=== PATIENT | female | born 1990 | race Caucasian/White ===

== ENCOUNTER 2021-12-03 23:16 | Inpatient (IN) ==
[2021-12-03] MEDS ORDERED: LORazepam 2 MG/1 ML VIAL ONE (23:27)
[2021-12-03] MEDS ORDERED: LORazepam 2 MG/1 ML VIAL IM STA (23:28)
[2021-12-03] MEDS ORDERED: MIDAZOLAM HCL 1 MG/ML 2ML VIAL ONE (23:52)
[2021-12-03] MEDS ORDERED: MIDAZOLAM HCL 1 MG/ML 2ML VIAL IV STA (23:52)
[2021-12-04] MEDS ORDERED: MIDAZOLAM HCL 1 MG/ML 2ML VIAL IV STA ×2 (00:09→07:45)
[2021-12-04] MEDS ORDERED: KETAMINE HCL INJ 50 MG/ML 10 ML VIAL ONE (00:13)
[2021-12-04] MEDS ORDERED: KETAMINE HCL INJ 50 MG/ML 10 ML VIAL IV STA ×4 (00:15→02:21)
[2021-12-04 01:03] LABS: Hematocrit (blood only) 35.5 % (37-47); Hemoglobin 12.2 g/dL (12.0-16.0); Mean Corpuscular Hemoglobin 30.7 pg (25-34); Mean Corpuscular Hgb Conc 34.4 g/dL (32-36); Mean Corpuscular Volume 89.2 fL (80-100); Mean Platelet Volume 10.1 fL (7.4-10.4); Platelet Count 348 K/uL (130-400); RDW Coefficient of Variation 13.3 % (11.5-14.5); RDW Standard Deviation 43.5 fL (36.4-46.3); Red Blood Count 3.98 M/uL (4.2-5.4); White Blood Count 10.13 K/uL (4.8-10.8)
[2021-12-04 01:22] LABS: Basophils # (auto) 0.07 K/uL (0-0.2); Basophils % (auto) 0.7 %; Eosinophils # (auto) 0.13 K/uL (0-0.5); Eosinophils % (auto) 1.3 %; Immature Granulocytes # (auto) 0.02 K/uL (0.00-0.02); Immature Granulocytes % (auto) 0.2 %; Lymphocytes % (auto) 18.8 %; Monocytes # (auto) 0.56 K/uL (0.11-0.59); Monocytes % (auto) 5.5 %; Neutrophils # (auto) 7.45 K/uL (1.4-6.5); Neutrophils % (auto) 73.5 %
[2021-12-04 01:23] LABS: Alanine Aminotransferase 24 U/L (7-52); Albumin Globulin Ratio 1.4 (0.9-2); Albumin Level 3.9 gm/dl (3.4-5.0); Alkaline Phosphatase 62 U/L (34-104); Anion Gap 8 (3-11); Aspartate Aminotransferase 35 U/L (13-39); BUN Creatinine Ratio 17.1 (10-20); Bilirubin,Total 0.7 mg/dl (0.2-1.0); Blood Urea Nitrogen 18 mg/dl (6-23); Calcium 9.1 mg/dl (8.5-10.1); Carbon Dioxide 24 mmol/L (21-32); Chloride 109 mmol/L (98-107); Est GFR (Non-African American) 70.7 ml/min; Globulin 2.8 gm/dl (2.5-4.0); Glucose 109 mg/dl (70-99(Fasting)); Potassium 4.2 mmol/L (3.5-5.1); Sodium 141 mmol/L (136-145); Total Protein 6.7 gm/dl (6.0-8.3)
[2021-12-04] MEDS ORDERED: fentaNYL citrate 100 MCG/2 ML VIAL IV STA (01:39)
[2021-12-04] MEDS ORDERED: diphenhydrAMINE 50 MG/ML VIAL ONE (02:07)
[2021-12-04] MEDS ORDERED: diphenhydrAMINE 50 MG/ML VIAL IV STA (02:11)
[2021-12-04] MEDS ORDERED: RAPID SEQUENCE INDUCTION BAG ONE (02:58)
[2021-12-04] MEDS ORDERED: PROPOFOL IV EMULSION 10 MG/ML 100 ML VIAL IV ONE (03:05)
[2021-12-04] MEDS: propofoL 1,000 MG/100 ML VIAL IV SCH ×5 (03:23→18:40)
[2021-12-04] MEDS ORDERED: PROPOFOL BOLUS FROM BAG IV PRN ×2 (03:28→07:21)
[2021-12-04] MEDS ORDERED: STAT IV Infusion **Titration per Protocol STA ×5 (03:28→13:23)
[2021-12-04] MEDS ORDERED: VECURONIUM BROMIDE 10 MG VIAL IV ONE ×2 (03:44→08:20)
[2021-12-04] MEDS ORDERED: SUCCINYLCHOLINE CHLORIDE 20 MG/ML 10 ML VIAL IV STA (04:03)
[2021-12-04] MEDS ORDERED: ETOMIDATE 2 MG/ML 20 ML VIAL IV ONE ×2 (04:04→11:59)
--- NOTE | 2021-12-04 04:13 | Emergency Department Note ---
Impression & Plan Delirium, Agitation Admit to the ICU ED Provider Note NAME: MAGDI WOLFE AGE: 31 SEX: F ARRIVES VIA: Ambulance INFORMANT: EMS ED PROVIDER(S): Marsha Mann DO CHIEF COMPLAINT: Altered mental status PLAN: Disposition: Admit to the ICU; critical care service and Kaya Bazan Hospitalist Condition: Critical condition MEDICAL DECISION MAKING: This is a 31-year-old female patient from [facility] who was noted to have an altered mental status at their facility this evening. She was given ReVia but had no response to this and seemed to become more agitated. EMS attempted sedation in route with no response. The patient arrived in our emergency department and severe agitated delirium state. Upon my assessment, the patient's vital signs are stable but she required multiple personnel just to keep her in the bed. She received multiple doses of IV sedatives including Ativan, Versed, ketamine, and Benadryl with no improvement in her delirious state. RSI was performed and the patient was intubated to facilitate the work-up of this questionable encephalopathy. CT scan of the brain was unremarkable. Keeping the patient sedate on the ventilator proved also to be quite difficult. She could not tolerate usual doses of IV propofol and required IV vecuronium to safely keep her intubated. I discussed the case with Kaya Bazan Hospitalist as well as the critical care PA and they will evaluate the patient for further care. Triage Nursing notes reviewed and agree with them. Additional history obtained from EMS Prior medical records reviewed Vital Signs: reviewed and unremarkable Differential diagnosis: Drug withdrawal; drug intoxication; hypoglycemia, hyperglycemia alcohol int oxication; encephalopathy; intracranial hemorrhage; intracranial mass ER treatment provided: IM Ativan IV normal saline bolus IV Versed IV Versed IV ketamine IV ketamine IV ketamine IV fentanyl IV Benadryl IV ketamine RSI-IV etomidate and IV succinylcholine IV propofol drip IV propofol bolus IV vecuronium OGT Diagnostics interpreted by me: Cardiac Monitoring: Normal sinus rhythm at 83 Laboratory studies: See below Imaging studies: As per stat rad CT head: No acute intracranial abnormality. Consider MRI if there is further concern HPI: 31/F arrives for evaluation of altered mental status. This is a 31-year-old female patient who had been an inpatient at [facility] since November 12 for Adderall addiction. According to EMS, the patient was found with an altered mental status tonight and given a dose of ReVia with no improvement in her symptoms. Upon EMS arrival, the patient was clearly in an agitated delirium state with evidence of involuntary movements. She was not coherent. She could not follow instructions or answer questions. ROS: She could not answer any questions appropriately PAST MEDICAL HISTORY:Adderall addiction PAST SURGICAL HISTORY:See Below FAMILY HISTORY:See Below SOCIAL HISTORY:A patient at [facility] HOME MEDICATIONS:See list ALLERGIES:Unknown VITALS:See Below PHYSICAL EXAMINATION: HEENT: Head - normocephalic and atraumatic. Pupils are pinpoint. Extraocular eye muscles are intact, and sclera are anicteric. Nose - moist nasal mucosa without discharge. Mouth - moist buccal mucosa. Oropharynx is nonerythematous and there is no tonsillar exudate or edema noted. Neck: Supple; no JVD or cervical lymphadenopathy Heart: Regular rate and rhythm. There is a normal S1 and S2 with no murmurs, clicks, or gallops appreciated. Lungs: Clear to auscultation bilaterally with no wheezes, rales, or rhonchi. Abdomen: Soft, completely nontender, nondistended, with good bowel sounds. There are no palpable pulsatile masses or hepatosplenomegaly. There is no guarding, rigidity, or rebound noted. Extremities: No evidence of cyanosis, clubbing, or edema. There are easily palpable peripheral pulses. Skin: warm and dry with good turgor and no rashes. Neuro: The patient is moving all 4 extremities without purpose. She does seem to have involuntary movements. She is specifically kicking her legs aggressively at times. ED COURSE: Times/Reassessments: 2324 The patient was evaluated in room A2. A complete history and physical was performed. I did review the records from [facility]. I spoke with EMS at length about their evaluation of the patient. The patient was given 2 mg of IM Ativan. This had no beneficial effect on the patient. An order was placed for continuous cardiac monitoring. The patient was in a normal sinus rhythm at a rate of 83. Multiple security guards were present along with nursing staff and ED techs just to keep the patient in the bed. The patient was given 2 mg of IV Versed in an effort to control the patient's movements and keep her safely in the bed. This did not help with her agitation. She was given a second 2 mg dose of IV Versed. Again, this had no beneficial effect on her agitation. The patient was given 35 mg of IV ketamine to try to help with her severe agitation. Vital signs remained stable. This did seem to help for approximately 5 minutes but then she became agitated again. She was throwing herself about the bed kicking her legs aggressively and sitting up abruptly at times to the point that she almost fell out of the bed. At this point we placed seizure pads on the bed rails to prevent the patient from injuring herself. She was given another 35 mg dose of IV ketamine to try and control the above behavior. This did not successfully slow her down to the point that we felt that she was safe in the bed by herself. Security and nursing staff continued to have to restrain her in the bed to maintain her safety. The patient was then given 60 mg of IV ketamine. Again, this did not seem to cause her any type of sedation. I gave the patient 50 mcg of IV fentanyl hoping that an opioid may work in conjunction with the previously given benzodiazepines but again, this did not offer any significant sedation. The patient's vital signs, most specifically her oxygen saturation remained stable. I discussed the case with the pharmacist. I gave the patient 50 mg of IV Benadryl in case this was a dystonic reaction. This seemed to worsen the patient's condition and made her more agitated. I ordered 120 mg of IV ketamine at this point and this seemed to only give mild sedative effects to the patient. At this point I was concerned for the patient's safety as she continued to throw herself about the bed. I was also concerned that the patient may vomit and have an airway problem. The decision was made to perform RSI, intubate the patient and place the patient on a ventilator. Endotracheal Intubation Indication to secure the patient's airway. The patient was on 100% oxygen via NRB prior to the procedure. Suction, airway e quipment, RSI drugs, respiratory equipment, and appropriate personnel were prepared prior to the initiation of the procedure. A time out was taken. Induction was performed with etomidate and succinylcholine. After observing the clinical benefit of the medications, the airway was easily visualized utilizing a glide scope. A 7.5 size ETT tube was placed atraumatically to 25 cm using standard technique. The cuff inflated without signs of malfunction. There were bilateral breath sounds, positive colormetric change, no gastric sounds, a good capnography waveform, and post procedure pulse oximetry was 100%. Post intubation sedation and paralysis was administered using propofol and vecuronium. There were no complications. An OG tube was placed following the intubation. A Grossman catheter was placed to obtain a urine specimen. The patient went for CT scan of her brain. I discussed the case with the critical care medicine team [facility] and [facility] will care for the patient. I have personally spent greater than 150 minutes of critical care time in the direct management of this patient. This includes bedside care, interpretation of diagnostic studies, and testing, discussion with consultants, patient, and family members, and other required patient management activities. This 150 minutes is in excess of all separately billable procedures. Marsha Mann, DO Past Med/Surg History Social History Smoking Status: Current every day smoker Hx Alcohol Use: No Hx Substance Use: Yes Substance Use Type Other:: unable to obtain details, intubated. Preferred Language: [place] Communication Ability: Impaired Brain Picker Required: No Beliefs That Will Affect Care: None marital status: Unknown Current [facility] Situation[facility] Fe[facility] at [facility]: Declines to Answer Assistive Devices: None Allergies Allergies Allergy/AdvReac Type Severity Reaction Status Date / Time Unable to Assess Allergy Verified 12/03/21 23:46 Home Meds Home Medications Medication Instructions Recorded Confirmed bupropion HCl 150 mg 24 hr tablet, 150 mg PO DAILY 12/04/21 12/04/21 extended release (Wellbutrin XL) gabapentin 400 mg tablet 400 mg PO TID 12/04/21 12/04/21 guanfacine 1 mg tablet 1 mg PO BID 12/04/21 12/04/21 hydroxyzine pamoate 50 mg capsule 50 mg PO TID PRN 12/04/21 12/04/21 (Vistaril) multivitamin 1 tab PO DAILY 12/04/21 12/04/21 naltrexone 50 mg tablet 25 mg PO DAILY 12/04/21 12/04/21 prazosin 1 mg capsule 1 mg PO HS 12/04/21 12/04/21 quetiapine 100 mg tablet (Seroquel) 100 mg PO HS 12/04/21 12/04/21 sertraline 50 mg tablet (Zoloft) 125 mg PO DAILY 12/04/21 12/04/21 topiramate 25 mg tablet (Topamax) 25 mg PO TID 12/04/21 12/04/21 Results & Data (ED) Vital Signs Vital Signs - 24 hr 12/03/21 23:13 12/04/21 00:45 12/04/21 01:01 Temperature 37.5 C Temperature Source Temporal Artery Scan Pulse Rate 86 Pulse Rate [Apical] 97 H 102 H Pulse Rhythm Regular Pulse Rhythm [Apical] Regular Regular Pulse Strength [Apical] Respiratory Rate 20 16 19 Respiratory Effort / Characteristics Respiratory Depth Normal Normal Normal Blood Pressure 156/94 H Blood Pressure [Left Arm] 137/85 123/80 Blood Pressure Mean 114 Blood Pressure Mean [Left Arm] 102 94 Blood Pressure Position Lying Blood Pressure Position [Left Arm] Lying Pulse Oximetry 96 96 95 Oxygen Delivery Method Room Air Room Air Room Air Fraction of Inspired Oxygen Sepsis Recent Fever Within 48 Hours No Sepsis New/Unexplained Change in Mental Status Yes Sepsis Action Taken by Nursing No Action Required End-Tidal CO2 End Tidal CO2 (18-54mmHg) 12/04/21 01:32 12/04/21 01:50 12/04/21 02:10 Temperature Temperature Source Pulse Rate Pulse Rate [Apical] 97 H 92 H 99 H Pulse Rhythm Pulse Rhythm [Apical] Regular Regular Regular Pulse Strength [Apical] Respiratory Rate 25 H 24 26 H Respiratory Effort / Characteristics Respiratory Depth Blood Pressure Blood Pressure [Left Arm] 112/61 154/74 H 111/84 Blood Pressure Mean Blood Pressure Mean [Left Arm] 78 100 93 Blood Pressure Position Blood Pressure Position [Left Arm] Lying Pulse Oximetry 94 95 97 Oxygen Delivery Method Room Air Room Air Fraction of Inspired Oxygen Sepsis Recent Fever Within 48 Hours Sepsis New/Unexplained Change in Mental Status Sepsis Action Taken by Nursing End-Tidal CO2 End Tidal CO2 (18-54mmHg) 12/04/21 02:22 12/04/21 02:33 12/04/21 03:05 Temperature Temperature Source Pulse Rate Pulse Rate [Apical] 102 H 105 H 107 H Pulse Rhythm Pulse Rhythm [Apical] Regular Pulse Strength [Apical] Respiratory Rate 18 24 22 Respiratory Effort / Characteristics Respiratory Depth Blood Pressure Blood Pressure [Left Arm] 143/82 H 122/94 112/76 Blood Pressure Mean Blood Pressure Mean [Left Arm] 102 103 88 Blood Pressure Position Blood Pressure Position [Left Arm] Pulse Oximetry 93 97 96 Oxygen Delivery Method Room Air Room Air Fraction of Inspired Oxygen Sepsis Recent Fever Within 48 Hours Sepsis New/Unexplained Change in Mental Status Sepsis Action Taken by Nursing End-Tidal CO2 End Tidal CO2 (18-54mmHg) 12/04/21 03:17 12/04/21 03:22 12/04/21 03:24 Temperature Temperature Source Pulse Rate Pulse Rate [Apical] 113 H 86 Pulse Rhythm Pulse Rhythm [Apical] Regular Regular Pulse Strength [Apical] Normal Respiratory Rate 27 H 16 Respiratory Effort / Characteristics Mechanically Ventilated Respiratory Depth Normal Blood Pressure Blood Pressure [Left Arm] 128/77 157/106 H Blood Pressure Mean Blood Pressure Mean [Left Arm] 94 123 Blood Pressure Position Blood Pressure Position [Left Arm] Lying Pulse Oximetry 98 99 Oxygen Delivery Method Room Air Mechanical Vent Fraction of Inspired Oxygen Sepsis Recent Fever Within 48 Hours Sepsis New/Unexplained Change in Mental Status Sepsis Action Taken by Nursing End-Tidal CO2 End Tidal CO2 (18-54mmHg) 27 38 12/04/21 03:26 12/04/21 03:31 12/04/21 04:01 Temperature Temperature Source Pulse Rate 94 H Pulse Rate [Apical] 94 H 90 Pulse Rhythm Pulse Rhythm [Apical] Regular Pulse Strength [Apical] Respiratory Rate 22 26 H 20 Respiratory Effort / Characteristics Mechanically Ventilated Respiratory Depth Blood Pressure Blood Pressure [Left Arm] 136/92 116/65 Blood Pressure Mean Blood Pressure Mean [Left Arm] 106 82 Blood Pressure Position Blood Pressure Position [Left Arm] Pulse Oximetry 97 98 99 Oxygen Delivery Method Mechanical Vent Mechanical Vent Fraction of Inspired Oxygen 50 Sepsis Recent Fever Within 48 Hours Sepsis New/Unexplained Change in Mental Status Sepsis Action Taken by Nursing End-Tidal CO2 35 End Tidal CO2 (18-54mmHg) 40 12/04/21 04:15 12/04/21 04:41 12/04/21 04:55 Temperature Temperature Source Pulse Rate Pulse Rate [Apical] 88 87 93 H Pulse Rhythm Pulse Rhythm [Apical] Pulse Strength [Apical] Respiratory Rate 16 16 18 Respiratory Effort / Characteristics Respiratory Depth Blood Pressure Blood Pressure [Left Arm] 127/82 118/70 153/101 H Blood Pressure Mean Blood Pressure Mean [Left Arm] 97 86 118 Blood Pressure Position Blood Pressure Position [Left Arm] Lying Pulse Oximetry 99 99 97 Oxygen Delivery Method Mechanical Vent Mechanical Vent Mechanical Vent Fraction of Inspired Oxygen Sepsis Recent Fever Within 48 Hours Sepsis New/Unexplained Change in Mental Status Sepsis Action Taken by Nursing End-Tidal CO2 End Tidal CO2 (18-54mmHg) 12/04/21 05:06 12/04/21 05:20 12/04/21 05:35 Temperature Temperature Source Pulse Rate Pulse Rate [Apical] 105 H 85 78 Pulse Rhythm Pulse Rhythm [Apical] Pulse Strength [Apical] Respiratory Rate 18 18 18 Respiratory Effort / Characteristics Respiratory Depth Normal Blood Pressure Blood Pressure [Left Arm] 147/98 H 131/72 117/74 Blood Pressure Mean Blood Pressure Mean [Left Arm] 114 91 88 Blood Pressure Position Blood Pressure Position [Left Arm] Pulse Oximetry 98 99 100 Oxygen Delivery Method Mechanical Vent Mechanical Vent Mechanical Vent Fraction of Inspired Oxygen Sepsis Recent Fever Within 48 Hours Sepsis New/Unexplained Change in Mental Status Sepsis Action Taken by Nursing End-Tidal CO2 End Tidal CO2 (18-54mmHg) 12/04/21 05:45 12/04/21 05:55 12/04/21 06:08 Temperature Temperature Source Pulse Rate Pulse Rate [Apical] 76 73 69 Pulse Rhythm Pulse Rhythm [Apical] Pulse Strength [Apical] Respiratory Rate 18 18 18 Respiratory Effort / Characteristics Respiratory Depth Blood Pressure Blood Pressure [Left Arm] 115/78 134/100 116/69 Blood Pressure Mean Blood Pressure Mean [Left Arm] 90 111 84 Blood Pressure Position Blood Pressure Position [Left Arm] Lying Pulse Oximetry 100 100 100 Oxygen Delivery Method Mechanical Vent Mechanical Vent Mechanical Vent Fraction of Inspired Oxygen Sepsis Recent Fever Within 48 Hours Sepsis New/Unexplained Change in Mental Status Sepsis Action Taken by Nursing End-Tidal CO2 End Tidal CO2 (18-54mmHg) 12/04/21 06:21 Temperature Temperature Source Pulse Rate Pulse Rate [Apical] 67 Pulse Rhythm Pulse Rhythm [Apical] Pulse Strength [Apical] Respiratory Rate 18 Respiratory Effort / Characteristics Respiratory Depth Blood Pressure Blood Pressure [Left Arm] 122/74 Blood Pressure Mean Blood Pressure Mean [Left Arm] 90 Blood Pressure Position Blood Pressure Position [Left Arm] Pulse Oximetry 100 Oxygen Delivery Method Mechanical Vent Fraction of Inspired Oxygen Sepsis Recent Fever Within 48 Hours Sepsis New/Unexplained Change in Mental Status Sepsis Action Taken by Nursing End-Tidal CO2 End Tidal CO2 (18-54mmHg) Laboratory Data Result diagrams: 12/05/21 04:44 12/05/21 04:44 Lab Results 12/04/21 12/04/21 12/04/21 Range/Units 00:51 00:51 00:51 WBC 10.13 (4.8-10.8) K/uL RBC 3.98 L (4.2-5.4) M/uL Hgb 12.2 (12.0-16.0) g/dL Hct 35.5 L (37-47) % MCV 89.2 (80-100) fL MCH 30.7 (25-34) pg MCHC 34.4 (32-36) g/dL RDW Std Deviation 43.5 (36.4-46.3) fL RDW Coeff of Camron 13.3 (11.5-14.5) % Plt Count 348 (130-400) K/uL MPV 10.1 (7.4-10.4) fL Immature Gran % (Auto) 0.2 % Neut % (Auto) 73.5 % Lymph % (Auto) 18.8 % Towner % (Auto) 5.5 % Eos % (Auto) 1.3 % Baso % (Auto) 0.7 % Neut # (Auto) 7.45 H (1.4-6.5) K/uL Lymph # (Auto) 1.90 (1.2-3.4) K/uL Towner # (Auto) 0.56 (0.11-0.59) K/uL Eos # (Auto) 0.13 (0-0.5) K/uL Baso # (Auto) 0.07 (0-0.2) K/uL Immature Gran # (Auto) 0.02 (0.00-0.02) K/uL Sodium 141 (136-145) mmol/L Potassium 4.2 (3.5-5.1) mmol/L Chloride 109 H (98-107) mmol/L Carbon Dioxide 24 (21-32) mmol/L Anion Gap 8 (3-11) BUN 18 (6-23) mg/dl Creatinine 1.05 (0.6-1.2) mg/dl Est Cr Clr Drug Dosing Not Reportable Est GFR ( Amer) 82.0 ml/min Est GFR (Non-Af Amer) 70.7 ml/min BUN/Creatinine Ratio 17.1 (10-20) Glucose 109 H (70-99(Fasting)) mg/dl POC Glucose (70-99) mg/dl Calcium 9.1 (8.5-10.1) mg/dl Total Bilirubin 0.7 (0.2-1.0) mg/dl AST 35 (13-39) U/L ALT 24 (7-52) U/L Alkaline Phosphatase 62 (34-104) U/L Total Creatine Kinase 308 H (26-192) U/L Total Protein 6.7 (6.0-8.3) gm/dl Albumin 3.9 (3.4-5.0) gm/dl Globulin 2.8 (2.5-4.0) gm/dl Albumin/Globulin Ratio 1.4 (0.9-2) Urine Color Urine Appearance (Clear) Urine pH (4.5-7.5) Ur Specific Sentinel (1.000-1.030) Urine Protein (Negative) Urine Glucose (UA) (Negative) Urine Ketones (Negative) Urine Blood (Negative) Urine Nitrite (Negative) Urine Bilirubin (Negative) Urine Urobilinogen (Negative) Ur Leukocyte Esterase (Negative) Urine WBC (Auto) (0-5) /hpf Urine RBC (Auto) (0-4) /hpf U Hyaline Cast (Auto) (0-5) /lpf U Epithel Cells (Auto) (0-5) /lpf Urine Bacteria (Auto) (Negative) Urine Test (Negative) Urine Opiates Screen (Neg) Ur Methadone, Qual (Neg) Urine Barbiturates (Neg) Ur Phencyclidine (PCP) (Neg) U Amphetamin/Meth Scrn (Neg) MDMA (Ecstasy) Screen (Neg) U Benzodiazepines Scrn (Neg) Ur Cocaine Metabolite (Neg) U Marijuana (THC) Screen (Neg) Ethyl Alcohol mg/dL (<10.0) mg/dl SARS-CoV-2, RNA, NAAT (NEGATIVE) 12/04/21 12/04/21 12/04/21 Range/Units 01:22 04:05 04:05 WBC (4.8-10.8) K/uL RBC (4.2-5.4) M/uL Hgb (12.0-16.0) g/dL Hct (37-47) % MCV (80-100) fL MCH (25-34) pg MCHC (32-36) g/dL RDW Std Deviation (36.4-46.3) fL RDW Coeff of Camron (11.5-14.5) % Plt Count (130-400) K/uL MPV (7.4-10.4) fL Immature Gran % (Auto) % Neut % (Auto) % Lymph % (Auto) % Towner % (Auto) % Eos % (Auto) % Baso % (Auto) % Neut # (Auto) (1.4-6.5) K/uL Lymph # (Auto) (1.2-3.4) K/uL Towner # (Auto) (0.11-0.59) K/uL Eos # (Auto) (0-0.5) K/uL Baso # (Auto) (0-0.2) K/uL Immature Gran # (Auto) (0.00-0.02) K/uL Sodium (136-145) mmol/L Potassium (3.5-5.1) mmol/L Chloride (98-107) mmol/L Carbon Dioxide (21-32) mmol/L Anion Gap (3-11) BUN (6-23) mg/dl Creatinine (0.6-1.2) mg/dl Est Cr Clr Drug Dosing Est GFR ( Amer) ml/min Est GFR (Non-Af Amer) ml/min BUN/Creatinine Ratio (10-20) Glucose (70-99(Fasting)) mg/dl POC Glucose 116 H (70-99) mg/dl Calcium (8.5-10.1) mg/dl Total Bilirubin (0.2-1.0) mg/dl AST (13-39) U/L ALT (7-52) U/L Alkaline Phosphatase (34-104) U/L Total Creatine Kinase (26-192) U/L Total Protein (6.0-8.3) gm/dl Albumin (3.4-5.0) gm/dl Globulin (2.5-4.0) gm/dl Albumin/Globulin Ratio (0.9-2) Urine Color Yellow Urine Appearance Clear (Clear) Urine pH 7.5 (4.5-7.5) Ur Specific Sentinel 1.015 (1.000-1.030) Urine Protein Negative (Negative) Urine Glucose (UA) Negative (Negative) Urine Ketones Negative (Negative) Urine Blood Negative (Negative) Urine Nitrite Negative (Negative) Urine Bilirubin Negative (Negative) Urine Urobilinogen Negative (Negative) Ur Leukocyte Esterase 1+ H (Negative) Urine WBC (Auto) 1-5 (0-5) /hpf Urine RBC (Auto) 0-4 (0-4) /hpf U Hyaline Cast (Auto) 0 (0-5) /lpf U Epithel Cells (Auto) 10-20 H (0-5) /lpf Urine Bacteria (Auto) Negative (Negative) Urine Test (Negative) Urine Opiates Screen Neg (Neg) Ur Methadone, Qual Neg (Neg) Urine Barbiturates Neg (Neg) Ur Phencyclidine (PCP) Neg (Neg) U Amphetamin/Meth Scrn Neg (Neg) MDMA (Ecstasy) Screen Pos H (Neg) U Benzodiazepines Scrn Pos H (Neg) Ur Cocaine Metabolite Neg (Neg) U Marijuana (THC) Screen Pos H (Neg) Ethyl Alcohol mg/dL (<10.0) mg/dl SARS-CoV-2, RNA, NAAT (NEGATIVE) 12/04/21 12/04/21 12/04/21 Range/Units 04:05 05:00 06:00 WBC (4.8-10.8) K/uL RBC (4.2-5.4) M/uL Hgb (12.0-16.0) g/dL Hct (37-47) % MCV (80-100) fL MCH (25-34) pg MCHC (32-36) g/dL RDW Std Deviation (36.4-46.3) fL RDW Coeff of Camron (11.5-14.5) % Plt Count (130-400) K/uL MPV (7.4-10.4) fL Immature Gran % (Auto) % Neut % (Auto) % Lymph % (Auto) % Towner % (Auto) % Eos % (Auto) % Baso % (Auto) % Neut # (Auto) (1.4-6.5) K/uL Lymph # (Auto) (1.2-3.4) K/uL Towner # (Auto) (0.11-0.59) K/uL Eos # (Auto) (0-0.5) K/uL Baso # (Auto) (0-0.2) K/uL Immature Gran # (Auto) (0.00-0.02) K/uL Sodium (136-145) mmol/L Potassium (3.5-5.1) mmol/L Chloride (98-107) mmol/L Carbon Dioxide (21-32) mmol/L Anion Gap (3-11) BUN (6-23) mg/dl Creatinine (0.6-1.2) mg/dl Est Cr Clr Drug Dosing Est GFR ( Amer) ml/min Est GFR (Non-Af Amer) ml/min BUN/Creatinine Ratio (10-20) Glucose (70-99(Fasting)) mg/dl POC Glucose (70-99) mg/dl Calcium (8.5-10.1) mg/dl Total Bilirubin (0.2-1.0) mg/dl AST (13-39) U/L ALT (7-52) U/L Alkaline Phosphatase (34-104) U/L Total Creatine Kinase (26-192) U/L Total Protein (6.0-8.3) gm/dl Albumin (3.4-5.0) gm/dl Globulin (2.5-4.0) gm/dl Albumin/Globulin Ratio (0.9-2) Urine Color Urine Appearance (Clear) Urine pH (4.5-7.5) Ur Specific Sentinel (1.000-1.030) Urine Protein (Negative) Urine Glucose (UA) (Negative) Urine Ketones (Negative) Urine Blood (Negative) Urine Nitrite (Negative) Urine Bilirubin (Negative) Urine Urobilinogen (Negative) Ur Leukocyte Esterase (Negative) Urine WBC (Auto) (0-5) /hpf Urine RBC (Auto) (0-4) /hpf U Hyaline Cast (Auto) (0-5) /lpf U Epithel Cells (Auto) (0-5) /lpf Urine Bacteria (Auto) (Negative) Urine Test Negative (Negative) Urine Opiates Screen (Neg) Ur Methadone, Qual (Neg) Urine Barbiturates (Neg) Ur Phencyclidine (PCP) (Neg) U Amphetamin/Meth Scrn (Neg) MDMA (Ecstasy) Screen (Neg) U Benzodiazepines Scrn (Neg) Ur Cocaine Metabolite (Neg) U Marijuana (THC) Screen (Neg) Ethyl Alcohol mg/dL < 10.0 (<10.0) mg/dl SARS-CoV-2, RNA, NAAT NEGATIVE (NEGATIVE) Administered Medications Bupropion HCl (Bupropion Xl 150 Mg Tabcr) 150 mg PO DAILY DARCI Stop: 01/04/22 09:14 Last Admin: 12/05/21 10:27 Dose: Not Given Documented by: [id number] Gabapentin (Gabapentin 400 Mg Cap) 400 mg PO TID DARCI Stop: 01/04/22 13:59 Last Admin: 12/05/21 13:03 Dose: 400 mg Documented by: [id number] Guanfacine HCl (Guanfacine Hcl 1 Mg Tab) 1 mg PO BID DARCI Stop: 01/04/22 09:14 Last Admin: 12/05/21 10:27 Dose: Not Given Documented by: [id number] Heparin Sodium (Porcine) (Heparin Sod 5,000 Unit/0.5 Ml Vial) 5,000 units SQ Q12 DARCI Stop: 01/03/22 08:59 Last Admin: 12/05/21 10:30 Dose: 5,000 units Documented by: [id number] Admin: 12/04/21 20:06 Dose: 5,000 units Documented by: [id number] Admin: 12/04/21 07:59 Dose: 5,000 units Documented by: [id number] Hydroxyzine HCl (Hydroxyzine Hcl 25 Mg Tab) 50 mg PO TID PRN PRN Reason: Anxiety Stop: 01/04/22 09:01 Last Admin: 12/05/21 14:06 Dose: 50 mg Documented by: [id number] Sennosides (Senna 8.6 Mg Tab) 17.2 mg PO HS [facility] Stop: 01/03/22 20:59 Last Admin: 12/04/21 20:07 Dose: 17.2 mg Documented by: [id number] Sertraline HCl (Sertraline Hcl 50 Mg Tablet) 125 mg PO DAILY DARCI Stop: 01/04/22 09:14 Last Admin: 12/05/21 10:27 Dose: Not Given Documented by: [id number] Topiramate (Topiramate 25 Mg Tab) 25 mg PO TID DARCI Stop: 01/04/22 13:59 Last Admin: 12/05/21 13:04 Dose: 25 mg Documented by: [id number] Discontinued Medications Diphenhydramine HCl (Diphenhydramine 50 Mg/Ml Vial) Confirm Administered Dose 50 mg .ROUTE .STK-MED ONE Stop: 12/04/21 02:08 Last Admin: 12/04/21 02:12 Dose: Not Given Documented by: [id number] Diphenhydramine HCl (Diphenhydramine 50 Mg/Ml Vial) 50 mg IV NOW STA Stop: 12/04/21 02:12 Last Admin: 12/04/21 02:12 Dose: 50 mg Documented by: [id number] Etomidate (Etomidate 2 Mg/Ml 20 Ml Vial) 20 mg IV NOW ONE Stop: 12/04/21 04:05 Last Admin: 12/04/21 03:18 Dose: 20 mg Documented by: [id number] Fentanyl Citrate (Fentanyl Citrate 100 Mcg/2 Ml Vial) 50 mcg IV NOW STA Stop: 12/04/21 01:40 Last Admin: 12/04/21 01:49 Dose: 50 mcg Documented by: [id number] Fentanyl Citrate (Fentanyl Bolus From Bag) 50 mcg IV Q60M PRN PRN Reason: Pain or Agitation Stop: 12/18/21 07:06 Last Admin: 12/04/21 19:27 Dose: 50 mcg Documented by: [id number] Admin: 12/04/21 17:53 Dose: 50 mcg Documented by: [id number] Admin: 12/04/21 14:36 Dose: 50 mcg Documented by: [id number] Admin: 12/04/21 12:45 Dose: 50 mcg Documented by: [id number] Admin: 12/04/21 11:45 Dose: 50 mcg Documented by: [id number] Admin: 12/04/21 07:29 Dose: 50 mcg Documented by: [id number] Propofol (Diprivan) 1,000 mg in 100 mls @ 26.796 mls/hr IV .Q3H44M [facility]; Protocol Stop: 12/07/21 03:29 Last Titration: 12/04/21 07:56 Dose: 0 mcg/kg/min, 0 mls/hr Documented by: [id number] Titration: 12/04/21 06:42 Dose: 70 mcg/kg/min, 26.8 mls/hr Documented by: [id number] Admin: 12/04/21 06:31 Dose: 60 mcg/kg/min, 23 mls/hr Documented by: [id number] Cosigned by: [id number] Titration: 12/04/21 06:31 Dose: 60 mcg/kg/min, 23 mls/hr Documented by: [id number] Cosigned by: [id number] Titration: 12/04/21 03:45 Dose: 60 mcg/kg/min, 23 mls/hr Documented by: [id number] Titration: 12/04/21 03:40 Dose: 50 mcg/kg/min, 19.1 mls/hr Documented by: [id number] Titration: 12/04/21 03:31 Dose: 30 mcg/kg/min, 11.5 mls/hr Documented by: [id number] Admin: 12/04/21 03:23 Dose: 20 mcg/kg/min, 7.7 mls/hr Documented by: [id number] Cosigned by: [id number] Fentanyl Citrate (Fentanyl Citrate) 2,500 mcg in 250 mls @ 0 mls/hr IV .Q0M [facility]; Protocol Stop: 12/18/21 07:19 Last Titration: 12/05/21 07:32 Dose: 0 mcg/hr, 0 mls/hr Documented by: [id number] Cosigned by: [id number] Titration: 12/05/21 07:32 Dose: 0 mcg/hr, 0 mls/hr Documented by: [id number] Cosigned by: [id number] Titration: 12/05/21 07:32 Dose: 0 mcg/hr, 0 mls/hr Documented by: [id number] Cosigned by: [id number] Titration: 12/05/21 07:30 Dose: 125 mcg/hr, 12.5 mls/hr Documented by: [id number] Cosigned by: [id number] Titration: 12/05/21 07:08 Dose: 150 mcg/hr, 15 mls/hr Documented by: [id number] Cosigned by: [id number] Admin: 12/05/21 03:14 Dose: 150 mcg/hr, 15 mls/hr Documented by: [id number] Cosigned by: [id number] Titration: 12/05/21 03:14 Dose: 150 mcg/hr, 15 mls/hr Documented by: [id number] Cosigned by: [id number] Titration: 12/04/21 22:17 Dose: 150 mcg/hr, 15 mls/hr Documented by: [id number] Cosigned by: [id number] Titration: 12/04/21 20:30 Dose: 125 mcg/hr, 12.5 mls/hr Documented by: [id number] Cosigned by: [id number] Titration: 12/04/21 19:27 Dose: 100 mcg/hr, 10 mls/hr Documented by: [id number] Cosigned by: [id number] Titration: 12/04/21 19:08 Dose: 75 mcg/hr, 7.5 mls/hr Documented by: [id number] Cosigned by: [id number] Titration: 12/04/21 14:36 Dose: 100 mcg/hr, 10 mls/hr Documented by: [id number] Cosigned by: [id number] Titration: 12/04/21 12:45 Dose: 75 mcg/hr, 7.5 mls/hr Documented by: [id number] Cosigned by: [id number] Titration: 12/04/21 11:44 Dose: 50 mcg/hr, 5 mls/hr Documented by: [id number] Cosigned by: [id number] Admin: 12/04/21 07:25 Dose: 25 mcg/hr, 2.5 mls/hr Documented by: [id number] Cosigned by: [id number] Famotidine 20 mg/ Syringe 5 mls @ 2.5 mls/min IV Q12H [facility] Stop: 01/03/22 08:59 Last Admin: 12/05/21 10:30 Dose: 2.5 mls/min Documented by: [id number] Admin: 12/04/21 20:08 Dose: 2.5 mls/min Documented by: [id number] Admin: 12/04/21 07:59 Dose: 2.5 mls/min Documented by: [id number] Parenteral Electrolytes (Plasma-Lyte A) 1,000 mls @ 120 mls/hr IV .Q8H20M [facility] Stop: 12/05/21 10:35 Last Infusion: 12/05/21 04:31 Dose: 0 mls/hr Documented by: [id number] Admin: 12/04/21 18:40 Dose: 100 mls/hr Documented by: [id number] Infusion: 12/04/21 17:58 Dose: 100 mls/hr Documented by: [id number] Admin: 12/04/21 07:58 Dose: 100 mls/hr Documented by: [id number] Propofol (Diprivan) 1,000 mg in 100 mls @ 0 mls/hr IV .Q0M [facility]; Protocol Stop: 12/07/21 07:44 Last Titration: 12/05/21 07:32 Dose: 0 mcg/kg/min, 0 mls/hr Documented by: [id number] Titration: 12/05/21 07:32 Dose: 0 mcg/kg/min, 0 mls/hr Documented by: [id number] Titration: 12/05/21 07:32 Dose: 0 mcg/kg/min, 0 mls/hr Documented by: [id number] Titration: 12/05/21 07:30 Dose: 35 mcg/kg/min, 12.1 mls/hr Documented by: [id number] Titration: 12/05/21 07:08 Dose: 40 mcg/kg/min, 13.9 mls/hr Documented by: [id number] Cosigned by: [id number] Admin: 12/05/21 06:30 Dose: 40 mcg/kg/min, 13.9 mls/hr Documented by: [id number] Cosigned by: [id number] Titration: 12/05/21 06:30 Dose: 40 mcg/kg/min, 13.9 mls/hr Documented by: [id number] Cosigned by: [id number] Admin: 12/05/21 01:58 Dose: 40 mcg/kg/min, 13.9 mls/hr Documented by: [id number] Cosigned by: [id number] Titration: 12/05/21 01:32 Dose: 40 mcg/kg/min, 13.9 mls/hr Documented by: [id number] Cosigned by: [id number] Titration: 12/04/21 20:46 Dose: 40 mcg/kg/min, 13.9 mls/hr Documented by: [id number] Titration: 12/04/21 19:21 Dose: 45 mcg/kg/min, 15.6 mls/hr Documented by: [id number] Titration: 12/04/21 19:08 Dose: 50 mcg/kg/min, 17.3 mls/hr Documented by: [id number] Cosigned by: [id number] Admin: 12/04/21 18:40 Dose: 50 mcg/kg/min, 17.3 mls/hr Documented by: [id number] Cosigned by: [id number] Titration: 12/04/21 18:15 Dose: 50 mcg/kg/min, 17.3 mls/hr Documented by: [id number] Cosigned by: [id number] Titration: 12/04/21 17:50 Dose: 50 mcg/kg/min, 17.3 mls/hr Documented by: [id number] Admin: 12/04/21 12:58 Dose: 50 mcg/kg/min, 19.1 mls/hr Documented by: [id number] Cosigned by: [id number] Titration: 12/04/21 12:58 Dose: 45 mcg/kg/min, 17.2 mls/hr Documented by: [id number] Cosigned by: [id number] Titration: 12/04/21 12:37 Dose: 45 mcg/kg/min, 17.2 mls/hr Documented by: [id number] Titration: 12/04/21 12:24 Dose: 40 mcg/kg/min, 15.3 mls/hr Documented by: [id number] Titration: 12/04/21 12:15 Dose: 35 mcg/kg/min, 13.4 mls/hr Documented by: [id number] Titration: 12/04/21 11:54 Dose: 30 mcg/kg/min, 11.5 mls/hr Documented by: [id number] Titration: 12/04/21 11:43 Dose: 25 mcg/kg/min, 9.6 mls/hr Documented by: [id number] Admin: 12/04/21 07:56 Dose: 20 mcg/kg/min, 7.7 mls/hr Documented by: [id number] Cosigned by: [id number] Dexmedetomidine/Sodium Chloride (Precedex) 200 mcg in 50 mls @ 5.78 mls/hr IV .Q8H40M [facility]; Protocol Stop: 12/08/21 13:29 Last Titration: 12/05/21 07:32 Dose: 0 mcg/kg/hr, 0 mls/hr Documented by: [id number] Titration: 12/05/21 07:32 Dose: 0 mcg/kg/hr, 0 mls/hr Documented by: [id number] Titration: 12/05/21 07:32 Dose: 0 mcg/kg/hr, 0 mls/hr Documented by: [id number] Titration: 12/05/21 07:30 Dose: 0.6 mcg/kg/hr, 8.7 mls/hr Documented by: [id number] Titration: 12/05/21 07:08 Dose: 0.7 mcg/kg/hr, 10.1 mls/hr Documented by: [id number] Cosigned by: [id number] Admin: 12/05/21 04:39 Dose: 0.7 mcg/kg/hr, 10.1 mls/hr Documented by: [id number] Cosigned by: [id number] Titration: 12/05/21 04:39 Dose: 0.7 mcg/kg/hr, 10.1 mls/hr Documented by: [id number] Cosigned by: [id number] Admin: 12/05/21 00:07 Dose: 0.7 mcg/kg/hr, 10.1 mls/hr Documented by: [id number] Cosigned by: [id number] Titration: 12/04/21 23:45 Dose: 0.7 mcg/kg/hr, 10.1 mls/hr Documented by: [id number] Cosigned by: [id number] Titration: 12/04/21 20:47 Dose: 0.7 mcg/kg/hr, 10.1 mls/hr Documented by: [id number] Titration: 12/04/21 20:00 Dose: 0.6 mcg/kg/hr, 8.7 mls/hr Documented by: [id number] Titration: 12/04/21 19:26 Dose: 0.5 mcg/kg/hr, 7.2 mls/hr Documented by: [id number] Titration: 12/04/21 19:08 Dose: 0.4 mcg/kg/hr, 5.8 mls/hr Documented by: [id number] Cosigned by: [id number] Admin: 12/04/21 17:51 Dose: 0.4 mcg/kg/hr, 5.8 mls/hr Documented by: [id number] Cosigned by: [id number] Titration: 12/04/21 17:51 Dose: 0.4 mcg/kg/hr, 5.8 mls/hr Documented by: [id number] Cosigned by: [id number] Admin: 12/04/21 13:33 Dose: 0.4 mcg/kg/hr, 5.8 mls/hr Documented by: [id number] Cosigned by: [id number] Potassium Phosphate 15 mmol/ (Sodium Chloride) 255 mls @ 88 mls/hr IV ONE ONE Stop: 12/05/21 09:23 Last Infusion: 12/05/21 10:05 Dose: 0 mls/hr Documented by: [id number] Admin: 12/05/21 07:11 Dose: 88 mls/hr Documented by: [id number] Ketamine HCl (Ketamine Hcl Inj 50 Mg/Ml 10 Ml Vial) Confirm Administered Dose 500 mg .ROUTE .STK-MED ONE Stop: 12/04/21 00:14 Last Admin: 12/04/21 00:18 Dose: Not Given Documented by: [id number] Ketamine HCl (Ketamine Hcl Inj 50 Mg/Ml 10 Ml Vial) 35 mg IV NOW STA Stop: 12/04/21 00:16 Last Admin: 12/04/21 00:17 Dose: 35 mg Documented by: [id number] Ketamine HCl (Ketamine Hcl Inj 50 Mg/Ml 10 Ml Vial) 35 mg IV NOW STA Stop: 12/04/21 00:45 Last Admin: 12/04/21 00:35 Dose: 35 mg Documented by: [id number] Ketamine HCl (Ketamine Hcl Inj 50 Mg/Ml 10 Ml Vial) 60 mg IV NOW STA Stop: 12/04/21 01:10 Last Admin: 12/04/21 00:55 Dose: 60 mg Documented by: [id number] Ketamine HCl (Ketamine Hcl Inj 50 Mg/Ml 10 Ml Vial) 120 mg IV NOW STA Stop: 12/04/21 02:22 Last Admin: 12/04/21 02:21 Dose: 120 mg Documented by: [id number] Ketamine HCl (Ketamine Hcl Inj 50 Mg/Ml 10 Ml Vial) 100 mg IV NOW STA Stop: 12/04/21 13:24 Last Admin: 12/04/21 17:41 Dose: Not Given Documented by: [id number] Lidocaine HCl (Lidocaine 1% Local 20 Ml Vial) Confirm Administered Dose 20 ml .ROUTE .STK-MED ONE Stop: 12/04/21 08:21 Last Admin: 12/04/21 08:22 Dose: 20 ml Documented by: [id number] Lorazepam (Lorazepam 2 Mg/1 Ml Vial) Confirm Administered Dose 2 mg .ROUTE .STK- MED ONE Stop: 12/03/21 23:28 Last Admin: 12/03/21 23:31 Dose: 2 mg Documented by: [id number] Lorazepam (Lorazepam 2 Mg/1 Ml Vial) 2 mg IM NOW STA; Protocol Stop: 12/03/21 23:29 Last Admin: 12/03/21 23:31 Dose: Not Given Documented by: [id number] Midazolam HCl (Midazolam Hcl 1 Mg/Ml 2ml Vial) 2 mg IV NOW STA Stop: 12/03/21 23:53 Last Admin: 12/03/21 23:56 Dose: 2 mg Documented by: [id number] Midazolam HCl (Midazolam Hcl 1 Mg/Ml 2ml Vial) Confirm Administered Dose 2 mg .ROUTE .STK-MED ONE Stop: 12/03/21 23:53 Last Admin: 12/03/21 23:56 Dose: Not Given Documented by: [id number] Midazolam HCl (Midazolam Hcl 1 Mg/Ml 2ml Vial) 2 mg IV NOW STA Stop: 12/04/21 00:10 Last Admin: 12/04/21 00:01 Dose: 2 mg Documented by: [id number] Midazolam HCl (Midazolam Hcl 1 Mg/Ml 2ml Vial) 2 mg IV Q2H PRN PRN Reason: RASS goal -1 Stop: 01/03/22 07:20 Last Admin: 12/04/21 14:23 Dose: 2 mg Documented by: [id number] Admin: 12/04/21 11:53 Dose: 2 mg Documented by: [id number] Midazolam HCl (Midazolam Hcl 1 Mg/Ml 2ml Vial) 2 mg IV NOW STA Stop: 12/04/21 07:46 Last Admin: 12/04/21 07:52 Dose: 2 mg Documented by: [id number] Miscellaneous (Rapid Sequence Induction Bag) Confirm Administered Dose 1 ea .ROUTE .STK-MED ONE Stop: 12/04/21 02:59 Last Admin: 12/04/21 10:27 Dose: Not Given Documented by: [id number] Miscellaneous (Stat Iv Infusion Titration Per Protocol) 1 ea N/A NOW STA Stop: 12/04/21 03:29 Last Admin: 12/04/21 10:28 Dose: Not Given Documented by: [id number] Potassium Chloride (Potassium Chloride 20 Meq/15 Ml Udc) 20 meq PO NOW STA Stop: 12/05/21 06:25 Last Admin: 12/05/21 07:11 Dose: 20 meq Documented by: [id number] Propofol (Propofol Iv Emulsion 10 Mg/Ml 100 Ml Vial) Confirm Administered Dose 1,000 mg IV .STK-MED ONE Stop: 12/04/21 03:06 Last Admin: 12/04/21 10:28 Dose: Not Given Documented by: [id number] Propofol (Propofol Bolus From Bag) 20 mg IV Q5M PRN PRN Reason: Sedation Stop: 12/07/21 03:27 Last Admin: 12/04/21 03:31 Dose: 20 mg Documented by: [id number] Cosigned by: [id number] Propofol (Propofol Bolus From Bag) 20 mg IV Q5M PRN PRN Reason: Sedation Stop: 12/07/21 07:21 Last Admin: 12/04/21 20:10 Dose: 20 mg Documented by: [id number] Cosigned by: [id number] Admin: 12/04/21 19:27 Dose: 20 mg Documented by: [id number] Cosigned by: [id number] Admin: 12/04/21 12:58 Dose: 20 mg Documented by: [id number] Cosigned by: [id number] Admin: 12/04/21 12:39 Dose: 20 mg Documented by: [id number] Cosigned by: [id number] Admin: 12/04/21 12:25 Dose: 20 mg Documented by: [id number] Cosigned by: [id number] Admin: 12/04/21 12:16 Dose: 20 mg Documented by: [id number] Cosigned by: [id number] Admin: 12/04/21 11:55 Dose: 20 mg Documented by: [id number] Cosigned by: [id number] Admin: 12/04/21 11:45 Dose: 20 mg Documented by: [id number] Cosigned by: [id number] Succinylcholine Chloride (Succinylcholine Chloride 20 Mg/Ml 10 Ml Vial) 120 mg IV NOW STA Stop: 12/04/21 04:04 Last Admin: 12/04/21 03:19 Dose: 120 mg Documented by: [id number] Vecuronium [place] (Vecuronium [place] 10 Mg Vial) Confirm Administered Dose 10 mg IV .STK-MED ONE Stop: 12/04/21 03:45 Last Admin: 12/04/21 03:45 Dose: 10 mg Documented by: [id number] Cosigned by: [id number] Vecuronium [place] (Vecuronium [place] 10 Mg Vial) Confirm Administered Dose 10 mg IV .STK-MED ONE Stop: 12/04/21 08:21 Last Admin: 12/04/21 08:22 Dose: 10 mg Documented by: [id number] Cosigned by: [id number] Discharge Plan Visit Data Chief Complaint: Altered Mental Status Stated Complaint: illness ED Provider: Marsha Mann Discharge Problem: Delirium, Agitation Patient Disposition: Admitted As Inpatient Discharge Instructions Interventions: ED Discharge Assessment Last Done: 12/04/21 06:53
[2021-12-04 04:29] LABS: Appearance Urine Clear (Clear); Bacteria Urine Automated Negative (Negative); Bilirubin Urine Negative (Negative); Blood Urine Negative (Negative); Cast Urine Automated 0 /lpf (0-5); Color Urine Yellow; Glucose Urine UA Negative (Negative); Ketones Urine Negative (Negative); Leukocyte Esterase Urine 1+ (Negative); Nitrite Urine Negative (Negative); Protein Urine Negative (Negative); RBC Urine Automated 0-4 /hpf (0-4); Specific Gravity Urine 1.015 (1.000-1.030); Urobilinogen Urine Negative (Negative); pH Urine 7.5 (4.5-7.5)
[2021-12-04 04:42] LABS: Pregnancy Test, Urine Negative (Negative)
[2021-12-04 04:52] LABS: Amphetamines+Metham, Urine Neg (Neg); Barbiturates, Urine Neg (Neg); Benzodiazepine, Urine Pos (Neg); Cocaine, Urine Neg (Neg); MDMA (Ecstacy), Urine Pos (Neg); Methadone, Urine Neg (Neg); Opiate, Urine Neg (Neg); Phencyclidine, Urine Neg (Neg)
--- NOTE | 2021-12-04 06:59 | XRay Report ---
XR chest 1V portable CLINICAL HISTORY: post intubation TECHNIQUE: Single frontal radiograph of the chest was obtained. Comparison: None available at the time of this dictation. FINDINGS: Enteric tube side-port is below the diaphragm. Endotracheal tube tip is 34 mm of the tia. The card iomediastinal silhouette is normal. The lungs are clear. No evidence of pleural effusion or pneumotho rax. IMPRESSION: Satisfactory position of enteric and endotracheal tubes. ACT 112: Negative or not required by law. Electronically signed by: Asad Dietz M.D. 12/04/2021 6:57 AM
--- NOTE | 2021-12-04 06:59 | CT Scan Report ---
CT OF THE HEAD WITHOUT CONTRAST CLINICAL HISTORY: Altered mental status. COMPARISON STUDY: No previous studies for comparison. CT DOSE: 537.48 mGy.cm TECHNIQUE: Helical axial images of the head were obtained without IV contrast. Automated exposure con trol was utilized for the study. A dose lowering technique was utilized adhering to the principles o f ALARA. FINDINGS: No acute intracranial hemorrhage, midline shift or mass effect is present. The ventricular system is unremarkable. The basal cisterns are patent. No extra-axial collections are present. There are no findings to suggest acute dural sinus thrombosis or acute territorial infarct. No significant calvarial abnormalities are present. IMPRESSION: No acute intracranial findings. ACT 112: Negative or not required by law. Electronically signed by: Luis Collins M.D. 12/04/2021 6:58 AM
--- NOTE | 2021-12-04 07:03 | History & Physical Report ---
Date of Service December 04, 2021 Assessment & Plan (1) Combative behavior: Plan: Dony Burroughs is a 31yo female presenting from [facility] with confusion, combative behavior. Patient administered multiple agents by EMS and ER team in effort to control agitation. Ultimately intubated and sedated with Propofol and Versed. She is afebrile, HD stable. Workup thus far is largely unremarkable. Normal WBC and blood counts. Normal chemistry, electroytes, renal function. No abnormality in liver studies. She has an elevation of CK to 308 which can most likely be explained by her extreme agitation. UTox is positive for benzodiazepines (administered prior to arrival), MDMA (patient is on Wellbutrin) and Marijuana/THC. Records are limited, home medications have yet to be confirmed. Patient appears to be on Wellbutrin 300mg daily, Clonidine, Gabapentin 400mg TID, Zoloft 125mg daily, Vistaril 50mg TID, Seroquel 100mg HS and Prazosin 1mg HS. Appears to have recently completed a course of PO Clindamycin as well. Neuro - Etiology of agitation uncertain. No obvious source of infection. ?medication effects ?withdrawal -Admit to MICU -Maintain ETT and mechanical ventilation for now -Sedation with Propofol gtt, Versed as needed -Check Mg, PO4, Ammonia, Lipase, Urine and serum Osm, TSH, Procalcitonin -Check ABG -Awaiting further Benzodiazepine testing -Record request from [facility] -Consider Psychiatry evaluation after extubation -Maintain seizure precautions -Confirm home medications Pulm - patient intubated and sedated for airway protection. Adequate oxygenation on AC/VC 400/40%/5 -Check ABG -Ventilator management per MICU protocol Cardiovascular - HD stable. Patient with history of HTN. -Check troponin x 1 -Check EKG -Confirm home medications and resume Clonidine GI - no acute issues. OGT in place -Maintain OGT to LIWS -Pepcid prophylaxis with mechanical ventilation - No acute issues. Renal function intact. Electrolytes acceptable. Grosmsan in place with 800mL dark urine. -Repeat CK in AM -Repeat chemistry in AM -Grossman management per MICU protocol -Normosol 100mL/hr x 2 liters Heme - No acute issues. No leukocytosis. Mild normochromic/normocytic anemia -Repeat CBC in AM ID - Afebrile, no leukocytosis. No obvious source of infection -Continue to monitor -Consider LP for encephalitis workup if mental status does not improve Endo - No acute issues. Blood pbiqx=[id number] -Check TSH -Monitor blood sugar F/E/N - Normosol 100mL/hr x 2 liters, electrolytes WNL - check Mg and PO4 and replete as needed, NPO for now Ppx - SCDs, Pepcid Code - Full (did not discuss with patient or family) Dispo -Admit to MICU History of Present Illness Chief Complaint: combative, confusion Primary Care Provider: NO PCP Dony Burroughs is a 31yo female presenting from [facility] facility with confusion, combativeness. History is limited as patient is intubated and sedated, no family at bedside and minimal records. Patient is at [facility] for reported addiction to opioids as well as Adderall. She was found to be confused and combative this evening and was sent to [facility] ER. Per EMS patient administered: Revia 5mg, Valium 10mg Versed 2.5mg. She was combative and altered upon arrival to the ER. Per ER physician - she was moving all extremities seemingly involuntarily - flailing and thrashing in the bed the throwing herself around. Per ER she was given: Ativan 2mg IM Versed 2mg + 2mg IM Ketamine 35mg IV + 35mg IV + 60mg IV + 120mg IV Fentanyl 50mcg IV Benadryl 50mg IV Patient continued to be combative and altered. Then intubated and sedated Etomidate 20mg IV Succinylcholine 120mg IV Propofol bolus 20mg and gtt Vecuronium 10mg IV During my encounter patient intubated, sedated. Allergies Allergy/AdvReac Type Severity Reaction Status Date / Time Unable to Assess Allergy Verified 12/03/21 23:46 Home Medications Medication Instructions Recorded Confirmed Type Unobtainable 12/03/21 12/03/21 History Past Med/Surg History Social History Smoking Status: Unknown if ever smoked Feels Safe at Home: Hesitant to Answer Review of Systems Review of Systems: Unobtainable due to endotracheal tube Physical Exam Physical Exam: General: patient intubated, sedated, still with occasional myoclonic movements, withdraws from noxious stimuli Skin: warm, dry, intact, no rashes or lesions, no bruising HEENT: NC/AT, pupils small bilaterally, equal and sluggishly reactive, anicteric sclera, conjunctiva without injection, external ear normal to inspection and nontender, nares patent, moist mucus membranes, dentition intact, ETT in place, trachea midline, no LAD, no thyromegaly, no JVD Heart: +S1/S2, regular, no m/r/g Lungs: equal air entry bilaterally, no rales/rhonchi/wheezes Abd: +BS, soft, ND, no masses/organomegaly/ascites, , OGT in place with appx 100mL brown liquid in canister, no blood, Grossman catheter in place with 800mL dark, yellow urine Ext: warm, 2+ pulses in UE/LE bilaterally, no clubbing/cyanosis or edema, presumed house arrest anklet present on left ankle Neuro: intubated, sedated, moving all extremities with equal strength prior to intubation, unclear if movements purposeful vs involuntary, pupils small, equal, round and reactive, patient withdraws from noxious stimuli Results & Data Results & Data ([facility]) Vital Signs (Past 12 Hours) Vital Signs Temp Pulse Pulse Resp BP BP Pulse Ox 12/04/21 06:21 67 18 122/74 100 12/04/21 06:08 69 18 116/69 100 12/04/21 05:55 73 18 134/100 100 12/04/21 05:45 76 18 115/78 100 12/04/21 05:35 78 18 117/74 100 12/04/21 05:20 85 18 131/72 99 12/04/21 05:06 105 H 18 147/98 H 98 12/04/21 04:55 93 H 18 153/101 H 97 12/04/21 04:41 87 16 118/70 99 12/04/21 04:15 88 16 127/82 99 12/04/21 04:01 90 20 116/65 99 12/04/21 03:31 94 H 26 H 136/92 98 12/04/21 03:26 94 H 22 97 12/04/21 03:22 86 16 157/106 H 99 12/04/21 03:17 113 H 27 H 128/77 98 12/04/21 03:05 107 H 22 112/76 96 12/04/21 02:33 105 H 24 122/94 97 12/04/21 02:22 102 H 18 143/82 H 93 12/04/21 02:10 99 H 26 H 111/84 97 12/04/21 01:50 92 H 24 154/74 H 95 12/04/21 01:32 97 H 25 H 112/61 94 12/04/21 01:01 102 H 19 123/80 95 12/04/21 00:45 97 H 16 137/85 96 12/03/21 23:13 37.5 C 86 20 156/94 H 96 Laboratory Results Laboratory Results WBC 10.13 K/uL (4.8-10.8) 12/04/21 00:51 RBC 3.98 M/uL (4.2-5.4) L 12/04/21 00:51 Hgb 12.2 g/dL (12.0-16.0) 12/04/21 00:51 Hct 35.5 % (37-47) L 12/04/21 00:51 MCV 89.2 fL (80-100) 12/04/21 00:51 MCH 30.7 pg (25-34) 12/04/21 00:51 MCHC 34.4 g/dL (32-36) 12/04/21 00:51 RDW Std Deviation 43.5 fL (36.4-46.3) 12/04/21 00:51 RDW Coeff of Camron 13.3 % (11.5-14.5) 12/04/21 00:51 Plt Count 348 K/uL (130-400) 12/04/21 00:51 MPV 10.1 fL (7.4-10.4) 12/04/21 00:51 Immature Gran % (Auto) 0.2 % 12/04/21 00:51 Neut % (Auto) 73.5 % 12/04/21 00:51 Lymph % (Auto) 18.8 % 12/04/21 00:51 Garrett % (Auto) 5.5 % 12/04/21 00:51 Eos % (Auto) 1.3 % 12/04/21 00:51 Baso % (Auto) 0.7 % 12/04/21 00:51 Neut # (Auto) 7.45 K/uL (1.4-6.5) H 12/04/21 00:51 Lymph # (Auto) 1.90 K/uL (1.2-3.4) 12/04/21 00:51 Garrett # (Auto) 0.56 K/uL (0.11-0.59) 12/04/21 00:51 Eos # (Auto) 0.13 K/uL (0-0.5) 12/04/21 00:51 Baso # (Auto) 0.07 K/uL (0-0.2) 12/04/21 00:51 Immature Gran # (Auto) 0.02 K/uL (0.00-0.02) 12/04/21 00:51 Sodium 141 mmol/L (136-145) 12/04/21 00:51 Potassium 4.2 mmol/L (3.5-5.1) 12/04/21 00:51 Chloride 109 mmol/L (98-107) H 12/04/21 00:51 Carbon Dioxide 24 mmol/L (21-32) 12/04/21 00:51 Anion Gap 8 (3-11) 12/04/21 00:51 BUN 18 mg/dl (6-23) 12/04/21 00:51 Creatinine 1.05 mg/dl (0.6-1.2) 12/04/21 00:51 Est Cr Clr Drug Dosing Not Reportable 12/04/21 00:51 Est GFR ( Amer) 82.0 ml/min 12/04/21 00:51 Est GFR (Non-Af Amer) 70.7 ml/min 12/04/21 00:51 BUN/Creatinine Ratio 17.1 (10-20) 12/04/21 00:51 Glucose 109 mg/dl (70-99(Fasting)) H 12/04/21 00:51 POC Glucose 116 mg/dl (70-99) H 12/04/21 01:22 Calcium 9.1 mg/dl (8.5-10.1) 12/04/21 00:51 Total Bilirubin 0.7 mg/dl (0.2-1.0) 12/04/21 00:51 AST 35 U/L (13-39) 12/04/21 00:51 ALT 24 U/L (7-52) 12/04/21 00:51 Alkaline Phosphatase 62 U/L (34-104) 12/04/21 00:51 Total Creatine Kinase 308 U/L (26-192) H 12/04/21 00:51 Total Protein 6.7 gm/dl (6.0-8.3) 12/04/21 00:51 Albumin 3.9 gm/dl (3.4-5.0) 12/04/21 00:51 Globulin 2.8 gm/dl (2.5-4.0) 12/04/21 00:51 Albumin/Globulin Ratio 1.4 (0.9-2) 12/04/21 00:51 Urine Color Yellow 12/04/21 04:05 Urine Appearance Clear (Clear) 12/04/21 04:05 Urine pH 7.5 (4.5-7.5) 12/04/21 04:05 Ur Specific [place] 1.015 (1.000-1.030) 12/04/21 04:05 Urine Protein Negative (Negative) 12/04/21 04:05 Urine Glucose (UA) Negative (Negative) 12/04/21 04:05 Urine Ketones Negative (Negative) 12/04/21 04:05 Urine Blood Negative (Negative) 12/04/21 04:05 Urine Nitrite Negative (Negative) 12/04/21 04:05 Urine Bilirubin Negative (Negative) 12/04/21 04:05 Urine Urobilinogen Negative (Negative) 12/04/21 04:05 Ur Leukocyte Esterase 1+ (Negative) H 12/04/21 04:05 Urine WBC (Auto) 1-5 /hpf (0-5) 12/04/21 04:05 Urine RBC (Auto) 0-4 /hpf (0-4) 12/04/21 04:05 U Hyaline Cast (Auto) 0 /lpf (0-5) 12/04/21 04:05 U Epithel Cells (Auto) 10-20 /lpf (0-5) H 12/04/21 04:05 Urine Bacteria (Auto) Negative (Negative) 12/04/21 04:05 Urine Test Negative (Negative) 12/04/21 04:05 Urine Opiates Screen Neg (Neg) 12/04/21 04:05 Ur Methadone, Qual Neg (Neg) 12/04/21 04:05 Urine Barbiturates Neg (Neg) 12/04/21 04:05 Ur Phencyclidine (PCP) Neg (Neg) 12/04/21 04:05 U Amphetamin/Meth Scrn Neg (Neg) 12/04/21 04:05 MDMA (Ecstasy) Screen Pos (Neg) H 12/04/21 04:05 U Benzodiazepines Scrn Pos (Neg) H 12/04/21 04:05 Ur Cocaine Metabolite Neg (Neg) 12/04/21 04:05 U Marijuana (THC) Screen Pos (Neg) H 12/04/21 04:05 Ethyl Alcohol mg/dL < 10.0 mg/dl (<10.0) 12/04/21 05:00 SARS-CoV-2, RNA, NAAT NEGATIVE (NEGATIVE) 12/04/21 06:00 Diagnostic Findings CXR - by my interpretation - ETT in place with tip appx 2.5cm above tia, OGT appears to be in stomach, lung parenchyma clear with no obvious infiltrate, failure or PTX CT Head - per STAT rad - no acute intracranial abnormality. Consider MRI if there is further concern ECG Additional Comments: ordered Code Status & VTE Plan VTE Prophylaxis Plan VTE Prophylaxis will be ordered: Yes Critical Care Time 45 minutes of critical care time PG Care Time/CCT Total # of Minutes Spent Total Time Spent with Patient: Total time spent is greater than 50% in coordination of care (as documented) at patient's floor/unit and/or counseling patient: Coding Level of Care Code None Diagnoses Combative behavior R46.89
[2021-12-04] MEDS ORDERED: ICU PROTOCOL FOR HYPERGLYCEMIA PRN ×2 (07:09→07:21)
--- NOTE | 2021-12-04 07:19 | Critical Care Consultation ---
Date of Consultation December 04, 2021 Assessment & Plan (1) Admitted to intensive care unit: Reason Critically Ill: 31-year-old female presenting with agitated delirium from possible substance intoxication requiring sedation with emergent endotracheal intubation. NEURO - * CAM ICU: Unable to assess * Altered mental status: * Reportedly agitated throughout stay in the emergency department. * Received escalating doses of sedation without effect. * Patient eventually required intubation for safety of patient and staff as well as to facilitate formal evaluation including head CT. * Head CT w/o actue findings. * Concerns for possible ingestion. * Sedation: Propofol * Pain: Fentanyl CARDIAC/VASCULAR - * No reported history of cardiovascular disease. * Blood pressures have been appropriate to this point. * Monitor on telemetry. RESPIRATORY - * Intubated for airway protection: * Titrate down ventilator settings as tolerated. * ABGs to assess oxygenation and ventilatory support. GI/NUTRITION - * OGT in place RENAL/LYTES - * No significant electrolyte derangements * IVF: Normosol R @80mL/hr - * Grossman in place - Strict I&Os. ENDO - * No h/o DM or Thyroid Dz * BSGs per unit protocol. ISS --> gtt per unit policy. HEME - * Stable H&H ID - * No concerns for infections sources at this time. LINES/IV ACCESS - * PIVs x2 * ETT * OGT * Grossman DVT PROPHYLAXIS - * Heparin * SCDs I have personally spent 35 minutes of critical care time in the direct management of this patient. This is a life/limb threatening event. This includes time spent evaluating patient, direct bedside care, chart review, placing orders, interpretation of diagnostic studies, discussion with consultants, patient, and family members, as well as other required patient management activities. This time is exclusive of all separately billable procedures, and teaching time and separate from and in addition to any other critical care service time. Thank you for allowing us to participate in the care of this patient. Please refer to my attending physician's documentation for any further recommendations. (2) Delirium, acute: (3) Endotracheally intubated: (4) AMS (altered mental status): (5) Agitation: History of Present Illness History of Present Illness Patient is a 31-year-old female who presented to the emergency department today from [facility] for altered mental status and aggressive behavior. Patient initially was treated with intravenous medications including ketamine and Versed. She was refractory to therapy and eventually required endotracheal intubation. Patient currently intubated and sedated with propofol. Upon evaluation in the ICU, the patient is sedated, but response to any stimuli. Unable to contribute to HPI. Allergies Allergy/AdvReac Type Severity Reaction Status Date / Time Unable to Assess Allergy Verified 12/03/21 23:46 Home Medications Medication Instructions Recorded Confirmed Type Unobtainable 12/03/21 12/03/21 History Patient History Social History Smoking Status: Unknown if ever smoked Feels Safe at Home: Hesitant to Answer Review of Systems Review of Systems: Unobtainable due to cognitive status, Unobtainable due to endotracheal tube and Unobtainable due to reduced consciousness Physical Exam 2 Physical Exam: VITAL SIGNS - Vital signs and nursing notes were reviewed. GENERAL - 31-year-old female appearing her stated age. Intubated and sedated. SKIN - Without rashes. HEAD - NC/AT. EYES - PERRL with EOMI bilaterally. Sclera anicteric. EARS - No deformities of external structures noted on gross examination bilaterally. NOSE - Midline and without cyanosis. No epistaxis or purulent drainage noted. MOUTH/OROPHARYNX - ETT/OGT in place. Without perioral cyanosis. NECK - Neck with FROM. Supple to palpation. No lymphadenopathy noted. No nuchal rigidity. LUNGS - Chest wall symmetric without accessory muscle use, intercostals retractions, or central cyanosis. Normal vesicular breath sounds CTA B/L. No wheezes, rales, or rhonchi appreciated. CARDIAC - RRR with S1/S2. No murmur, rubs, or gallops appreciated. ABDOMEN - Abdominal contour flat without pulsations or visible masses. BS normoactive all four quadrants. No tenderness, palpable masses, hepa tosplenomegaly, or ascites noted. EXTREMITIES - No clubbing or peripheral cyanosis. No pretibial edema present. +3/5 radial and dorsalis pedis pulses palpated throughout. NEUROLOGIC - No focal neurological deficits noted. Unable to fully assess secondary to sedation. Results & Data Results & Data ([facility]) Vital Signs (Past 12 Hours) Vital Signs Temp Pulse Pulse Resp BP BP Pulse Ox 12/04/21 06:52 73 18 126/90 97 12/04/21 06:21 67 18 122/74 100 12/04/21 06:08 69 18 116/69 100 12/04/21 05:55 73 18 134/100 100 12/04/21 05:45 76 18 115/78 100 12/04/21 05:35 78 18 117/74 100 12/04/21 05:20 85 18 131/72 99 12/04/21 05:06 105 H 18 147/98 H 98 12/04/21 04:55 93 H 18 153/101 H 97 12/04/21 04:41 87 16 118/70 99 12/04/21 04:15 88 16 127/82 99 12/04/21 04:01 90 20 116/65 99 12/04/21 03:31 94 H 26 H 136/92 98 12/04/21 03:26 94 H 22 97 12/04/21 03:22 86 16 157/106 H 99 12/04/21 03:17 113 H 27 H 128/77 98 12/04/21 03:05 107 H 22 112/76 96 12/04/21 02:33 105 H 24 122/94 97 12/04/21 02:22 102 H 18 143/82 H 93 12/04/21 02:10 99 H 26 H 111/84 97 12/04/21 01:50 92 H 24 154/74 H 95 12/04/21 01:32 97 H 25 H 112/61 94 12/04/21 01:01 102 H 19 123/80 95 12/04/21 00:45 97 H 16 137/85 96 12/03/21 23:13 37.5 C 86 20 156/94 H 96 Coding Level of Care Code Critical Care 1st 30-74 mins Diagnoses Admitted to intensive care unit Z78.9 Delirium, acute R41.0 Endotracheally intubated Z97.8 AMS (altered mental status) R41.82 Agitation R45.1 Time Spent (min) 35
[2021-12-04] MEDS ORDERED: propofoL 1,000 MG/100 ML VIAL IV SCH (07:21)
[2021-12-04] MEDS: fentaNYL citrate 2,500 MCG/250 ML BAG IV SCH (07:25)
[2021-12-04] MEDS: NORMOSOL-R 1,000 ML IV SCH ×2 (07:58→18:40)
[2021-12-04] MEDS: HEPARIN SOD 5,000 UNIT/0.5 ML VIAL SQ SCH ×2 (07:59→20:06)
[2021-12-04] MEDS: FAMOTIDINE 20 MG in SYRINGE 3 ML IV SCH ×2 (07:59→20:08)
[2021-12-04] MEDS ORDERED: VECURONIUM BROMIDE 10 MG VIAL IV STA (08:08)
[2021-12-04 08:14] LABS: iSTAT Allen Test Pass; iSTAT Arterial Blood Gas HCO3 22 meg/L (19-24); iSTAT Arterial Blood Gas pCO2 40 mmHg (35-46); iSTAT Arterial Blood Gas pH 7.35 (7.35-7.45); iSTAT Arterial Blood Gas pO2 < 32 mmHg (80-95); iSTAT Carbon Dioxide 23 mmol/L (24-31); iSTAT FiO2 40 %; iSTAT Site R Radial
[2021-12-04] MEDS ORDERED: XYLOCAINE 1%/SOD BICARB 20 ML VIAL INFIL ONE (08:16)
[2021-12-04] MEDS ORDERED: LIDOCAINE 1% LOCAL 20 ML VIAL ONE (08:20)
[2021-12-04 09:31] LABS: Appearance CSF Clear; CSF Count Tube # 3; CSF Xanthrochromic No xanthochromia; Color CSF Colorless; Red Blood Cell CSF (A) 0 /uL (0-); Red Blood Cell CSF (B) 0 /uL (0-); White Blood Cell CSF (A) 1 /uL (0-5); White Blood Cell CSF (B) 1 /uL (0-5)
--- NOTE | 2021-12-04 09:33 | Procedure Note ---
Procedure Note Date of Service December 04, 2021 Note Procedure Date: Noted above Procedure: Lumbar puncture Pre-procedure Diagnosis: Acute encephalopathy Post-procedure Diagnosis: same as above Prior to Procedure: Informed Consent: Patient does not maintain any contacts in the chart, two- physician consent with myself and Dr. Mann. Attending Staff: Ashley Gallardo DO Resident/Physician Marine Engineer Cpvec: Not Applicable Indications: Patient is a 31-year-old female with acute encephalopathy The identity of the patient was confirmed and a bedside time out was performed. Description of Procedure: Patient was positioned in the right lateral decubitus position, prepped and draped in usual sterile fashion. The L4-5 space located with bilateral iliac crests as landmarks. 1% Lidocaine without epinephrine was used to anesthetize the area. A 20 gauge spinal needle was introduced into the subarachnoid space. Stylet was removed with appropriate fluid return. Needle removed after adequate fluid collected and sterile bandage placed at puncture site. 10 mL of CSF fluid collected. Fluid was clear. Specimen(s): sent for Gram Stain, culture, cell count, glucose, protein, Needcheck CSF meningitis panel Complications: None Findings: Normal-appearing CSF Estimated Blood Loss: trace Coding CPT Codes Neurology - Neurology: 74362 Lumbar Puncture, diagnostic ([id number]) [facility] Procedure Codes (Charges) Neurology Neurology: 39340 Lumbar Puncture, diagnostic
--- NOTE | 2021-12-04 09:44 | Communication Note ---
Date of Service: December 04, 2021 I have ordered cathinone for possible bath salt ingestion. Performed a lumbar puncture awaiting those results. Given no fever and lack of white count I do not believe this is infectious in origin. Initial lumbar puncture results reviewed no pleocytosis, mildly elevated glucose protein within normal limits awaiting final bio fire results Patient was still agitated this morning, continue sedation for 12 to 24 hours and will reassess neurologic status and compliance at that time. Patient remains critically ill. I have personally spent 30 minutes of critical care time in the direct management of this patient. This is a life/limb threatening event. This includes time spent evaluating patient, direct bedside care, chart review, placing orders, interpretation of diagnostic studies, discussion with consultants, patient, and/or family members regarding treatment decisions, as well as other required patient management activities. This time is exclusive of all separately billable procedures, and teaching time and separate from and in addition to any other critical care service time. Coding Level of Care Code Critical Care yon addt'l 30 min
[2021-12-04 10:21] LABS: Magnesium 2.1 mg/dl (1.7-2.4); Phosphorus 2.9 mg/dl (2.5-4.9)
[2021-12-04 10:33] LABS: Cryptococcus neoformans/ga PCR Not Detected (NotDetected); Cytomegalovirus PCR Not Detected (NotDetected); Enterovirus PCR Not Detected (NotDetected); Escherichia coli K1 PCR Not Detected (NotDetected); Haemophilius influenzae PCR Not Detected (NotDetected); Herpes Simplex Virus 1 PCR Not Detected (NotDetected); Herpes Simplex Virus 2 PCR Not Detected (NotDetected); Human Herpes Virus 6 PCR Not Detected (NotDetected); Human Parechovirus PCR Not Detected (NotDetected); Listeria monocytogenes PCR Not Detected (NotDetected); Neisseria meningitidis PCR Not Detected (NotDetected); Streptococcus agalactiae PCR Not Detected (NotDetected); Streptococcus pneumoniae PCR Not Detected (NotDetected); Varicella Zoster Virus PCR Not Detected (NotDetected)
[2021-12-04 10:37] LABS: Thyroid Stimulating Hormone 0.285 uIu/ml (0.300-4.500)
[2021-12-04 11:17] LABS: T4 Free Thyroxine 0.77 ng/dl (0.61-1.60)
[2021-12-04] MEDS: PROPOFOL BOLUS FROM BAG IV PRN ×8 (11:45→20:10)
[2021-12-04] MEDS: MIDAZOLAM HCL 1 MG/ML 2ML VIAL IV PRN ×2 (11:53→14:23)
[2021-12-04] MEDS ORDERED: SUCCINYLCHOLINE CHLORIDE 20 MG/ML 10 ML VIAL IV ONE (11:59)
[2021-12-04] MEDS: dexMEDEtomidine 200 MCG/50 ML BAG IV SCH ×2 (13:33→17:51)
[2021-12-04] MEDS: KETAMINE HCL INJ 50 MG/ML 10 ML VIAL IV STA ×2 (13:50→17:41)
--- NOTE | 2021-12-04 14:24 | Hospitalist Progress Note ---
Date of Service December 04, 2021 Assessment & Plan (1) Combative behavior: Plan: Dony Burroughs is a 31yo female presenting from [facility] facility with confusion, combative behavior. Patient administered multiple agents by EMS and ER team in effort to control agitation. Ultimately intubated and sedated with Propofol and Versed.On admit normal WBC and blood counts. Normal chemistry, electroytes, renal function. No abnormality in liver studies. She has an elevation of CK to 308 which can most likely be explained by her extreme agitation. UTox is positive for benzodiazepines (administered prior to arrival), MDMA (patient is on Wellbutrin) and Marijuana/THC. Records are limited, home medications have yet to be confirmed. Patient appears to be on Wellbutrin 300mg daily, Clonidine, Gabapentin 400mg TID, Zoloft 125mg daily, Vistaril 50mg TID, Seroquel 100mg HS and Prazosin 1mg HS. Appears to have recently completed a course of PO Clindamycin as well. Acute encephalopathy, severe agitation, combative Presented from [facility] rehab with confusion, about emptiness, severe agitation. Received Ativan, Versed, 4 doses of ketamine, fentanyl, and Benadryl and ultimately required intubation/sedation CT head without acute findings Admitted to ICU No leukocytosis, Hgb 12.2, ABG: pH 7.35, PCO2 40, HCO3 22, total CO2 23 Sodium normal, potassium normal, CK3 08, troponin undetectable, TSH 0.285 with normal free T4, UA bland Unremarkable metabolic work-up as noted. Patient remains with severe encephalopathy. Patient with no contacts in chart and with severe acute encephalopathy. At this time she is unable to engage in meaningful conversation, express her medical decision preferences, or engage in conversation regarding the risk/benefits of such decisions. Lumbar puncture for further evaluation discussed with sales associate provider. As patient is unable to give consent, and no family/contacts are available with him to discuss present to consistent two physician consent was performed. Agree that benefits of LP o utweigh the risks, and proceed with lumbar puncture today. LP performed by sales associate CSF glucose 80, total protein 39 normal, WBC 10, RBC 0 CSF pathogen PCR negative U tox positive for MDMA with a history of appropriate use, benzo positive but did receive benzos in route via EMS. Marijuana positive. Remaining confirmations pending. Cocaine negative. Alcohol negative. COVID-negative Cathinone/Bath salts pending. Phencyclidine negative. Intubation sedation, propofol/Precedex/fentanyl Ulcer PPx, currently on Pepcid - Diminished UOP evening 12/05, IVFM rate increased and +1L to stop Hypertension Troponin negative No ST changes Home clonidine held while on above Ppx - SCDs, Pepcid Code - Full (did not discuss with patient or family) Dispo -Admit to MICU Admission and Anticipated Discharge Date Admission Date: December 04, 2021 Subjective Sedated, intubated. Patient unable to give subjective history. Review of Systems Review of Systems: Unobtainable due to endotracheal tube Physical Exam Physical Exam: General: Intubated, sedated, OG in place HEENT: Atraumatic, normocephalic. Pulm: Ventilated, grossly clear without wheezes/rales/rhonchi. Symmetrical chest rise. No increase in work of breathing. No respiratory distress. Cardiac: RRR, -mrg. Radial pulses intact and symmetrical. Abdominal: Soft, ND Results & Data Results & Data ([facility]) Vital Signs (Past 12 Hours) Vital Signs Temp Pulse Pulse Resp BP BP Pulse Ox 12/04/21 10:36 95 H 18 99 12/04/21 10:20 91 H 19 97 12/04/21 10:00 86 18 124/94 100 12/04/21 09:30 76 18 89 L 12/04/21 09:00 77 18 120/81 94 12/04/21 08:59 79 18 108/67 94 12/04/21 08:30 82 17 91 12/04/21 08:10 77 18 99 12/04/21 08:01 103/65 12/04/21 07:30 81 20 97 12/04/21 07:22 88 21 115/77 92 12/04/21 07:21 36.6 C 12/04/21 07:15 79 25 H 93 12/04/21 07:10 124/72 12/04/21 06:52 73 18 126/90 97 12/04/21 06:50 88 10 L 126/90 95 12/04/21 06:45 117/74 12/04/21 06:21 67 18 122/74 100 12/04/21 06:08 69 18 116/69 100 12/04/21 05:55 73 18 134/100 100 06/14/22 05:45 76 18 115/78 100 12/04/21 05:35 78 18 117/74 100 12/04/21 05:20 85 18 131/72 99 12/04/21 05:06 105 H 18 147/98 H 98 12/04/21 04:55 93 H 18 153/101 H 97 12/04/21 04:41 87 16 118/70 99 12/04/21 04:15 88 16 127/82 99 12/04/21 04:01 90 20 116/65 99 12/04/21 03:31 94 H 26 H 136/92 98 12/04/21 03:26 94 H 22 97 12/04/21 03:22 86 16 157/106 H 99 12/04/21 03:17 113 H 27 H 128/77 98 12/04/21 03:05 107 H 22 112/76 96 12/04/21 02:33 105 H 24 122/94 97 12/04/21 02:22 102 H 18 143/82 H 93 PG Care Time/CCT Total # of Minutes Spent Total Time Spent with Patient: Total time spent is greater than 50% in coordination of care (as documented) at patient's floor/unit and/or counseling patient: Coding Level of Care Code 14259 Subseq Hosp Care Lvl 2 Diagnoses Combative behavior R46.89
--- NOTE | 2021-12-04 19:18 | Electrocardiogram Report ---
Test Reason : Blood Pressure : / mmHG Vent. Rate : 094 BPM Atrial Rate : 094 BPM P-R Int : 172 ms QRS Dur : 078 ms QT Int : 394 ms P-R-T Axes : 068 078 031 degrees QTc Int : 492 ms Normal sinus rhythm Nonspecific T wave abnormality Prolonged QT Abnormal ECG No previous ECGs available Confirmed by Rj Browne ([id number]) on 12/04/2021 7:18:03 PM Referred By: Nathalie Bustos Confirmed By:Elmer Browne
[2021-12-04] MEDS: SENNA 8.6 MG TAB PO SCH (20:07)
[2021-12-05] MEDS: dexMEDEtomidine 200 MCG/50 ML BAG IV SCH ×2 (00:07→04:39)
[2021-12-05] MEDS: propofoL 1,000 MG/100 ML VIAL IV SCH ×2 (01:58→06:30)
[2021-12-05] MEDS: fentaNYL citrate 2,500 MCG/250 ML BAG IV SCH (03:14)
[2021-12-05 04:04] LABS: iSTAT Allen Test Pass; iSTAT Art Bld Gas pCO2 Correct 31 mmHg (35-46); iSTAT Arterial Blood Gas HCO3 20 meg/L (19-24); iSTAT Arterial Blood Gas pCO2 31 mmHg (35-46); iSTAT Arterial Blood Gas pH 7.41 (7.35-7.45); iSTAT Arterial Blood Gas pO2 80 mmHg (80-95); iSTAT Arterial Blood Gas pO2 C 78; iSTAT Carbon Dioxide 21 mmol/L (24-31); iSTAT FiO2 30 %; iSTAT Hematocrit 30 % (37-47); iSTAT Hemoglobin 10.2 g/dl (12.0-16.0); iSTAT Potassium 2.9 mmol/L (3.3-5.0); iSTAT Site R Radial; iSTAT Sodium 145 mmol/L (135-144)
[2021-12-05 05:20] LABS: Hematocrit (blood only) 31.6 % (37-47); Hemoglobin 10.7 g/dL (12.0-16.0); Mean Corpuscular Hemoglobin 30.2 pg (25-34); Mean Corpuscular Hgb Conc 33.9 g/dL (32-36); Mean Corpuscular Volume 89.3 fL (80-100); Mean Platelet Volume 10.2 fL (7.4-10.4); Platelet Count 319 K/uL (130-400); RDW Coefficient of Variation 13.4 % (11.5-14.5); RDW Standard Deviation 44.2 fL (36.4-46.3); Red Blood Count 3.54 M/uL (4.2-5.4); White Blood Count 10.42 K/uL (4.8-10.8)
[2021-12-05 05:41] LABS: Basophils # (auto) 0.08 K/uL (0-0.2); Basophils % (auto) 0.8 %; Eosinophils # (auto) 0.19 K/uL (0-0.5); Eosinophils % (auto) 1.8 %; Immature Granulocytes # (auto) 0.02 K/uL (0.00-0.02); Immature Granulocytes % (auto) 0.2 %; Lymphocytes # (auto) 2.96 K/uL (1.2-3.4); Lymphocytes % (auto) 28.4 %; Monocytes # (auto) 0.86 K/uL (0.11-0.59); Monocytes % (auto) 8.3 %; Neutrophils # (auto) 6.31 K/uL (1.4-6.5); Neutrophils % (auto) 60.5 %
[2021-12-05 06:02] LABS: Albumin Level 3.1 gm/dl (3.4-5.0); BUN Creatinine Ratio 20.3 (10-20); Bilirubin Direct 0.1 mg/dl (0-0.2); Bilirubin,Total 0.6 mg/dl (0.2-1.0); Creatinine Clr Calc Pharmacy 100.5 ml/min; Est GFR (African American) 125.1 ml/min; Magnesium 2.1 mg/dl (1.7-2.4); Phosphorus 2.2 mg/dl (2.5-4.9); Total Protein 5.4 gm/dl (6.0-8.3)
[2021-12-05] MEDS ORDERED: POTASSIUM CHLORIDE 20 MEQ/15 ML UDC PO STA (06:24)
[2021-12-05] MEDS ORDERED: POTASSIUM PHOS 3 MMOL/1 ML INFUSION IV STA (06:24)
[2021-12-05] MEDS ORDERED: POTASSIUM PHOSPHATE 15 MMOL in SODIUM CHLORIDE 0.9% 250 ML IV ONE (06:30)
--- NOTE | 2021-12-05 07:06 | XRay Report ---
KUB pre MRI CLINICAL HISTORY: pre MRI. COMPARISON STUDY: No previous studies for comparison. TECHNIQUE: Multiple supine views of the abdomen FINDINGS: The bowel gas pattern is within normal limits without evidence for dilatation or obstruction. NG tube is in place. Rectal catheter is also in place. No metallic foreign bodies are identified. There is e vidence for fecal stasis. There is no evidence for organomegaly or gross intra-abdominal mass. No abn ormal calcifications are seen along the course of the urinary tracts bilaterally. No acute osseous pa thology. IMPRESSION: 1. No acute intra-abdominal abnormality. 2. Mild to moderate fecal stasis. 3. No radiopaque foreign bodies. ACT 112: Negative or not required by law. Electronically signed by: Noam Teran M.D. 12/05/2021 7:04 AM
--- NOTE | 2021-12-05 07:10 | XRay Report ---
BONY ORBITS 2 VIEWS CLINICAL HISTORY: MRI clearance. FINDINGS: AP and lateral views of the bony orbits are obtained. Correlation is made with CT of the br ain dated 12/04/2021. A metallic piercing is noted in the right facial soft tissues. This is located a pproximately 1.5 cm from the right orbit as seen on the recent CT scan. No additional radiodense/meta llic foreign body is identified in the region of the bony orbits. The bony orbits are intact as image d. The visualized paranasal sinuses and the mastoid air cells appear clear. The imaged calvarium appe ars intact. An endotracheal tube is noted. IMPRESSION: 1. There is a metallic piercing in the right facial soft tissues approximately 1.5 cm from the right orbit. This is of indeterminant safety for MRI. 2. No additional radiodense/metallic foreign body is seen in the region of the bony orbits. ACT 112: Negative or not required by law. Electronically signed by: Bryan Kern M.D. 12/05/2021 7:09 AM
[2021-12-05] MEDS ORDERED: Nursing to Pharmacy Communication SCH (07:41)
--- NOTE | 2021-12-05 07:41 | Hospitalist Progress Note ---
Date of Service December 06, 2021 Assessment & Plan (1) Combative behavior: Plan: Dony Burroughs is a 31yo female presenting from [facility] with confusion, combative behavior. Patient administered multiple agents by EMS and ER team in effort to control agitation. Ultimately intubated and sedated with Propofol and Versed.On admit normal WBC and blood counts. Normal chemistry, electroytes, renal function. No abnormality in liver studies. She has an elevation of CK to 308 which can most likely be explained by her extreme agitation. UTox is positive for benzodiazepines (administered prior to arrival), MDMA (patient is on Wellbutrin) and Marijuana/THC. Records are limited, home medications appears to be Wellbutrin 300mg daily, Clonidine, Gabapentin 400mg TID, Zoloft 125mg daily, Vistaril 50mg TID, Seroquel 100mg HS and Prazosin 1mg HS. Appears to have recently completed a course of PO Clindamycin as well. Acute encephalopathy, severe agitation, combative -Chemical restrain in ER, eventual intubation CT head without acute findings - Lumbar puncture performed by squash centre manager CSF glucose 80, total protein 39 normal, WBC 10, RBC 0 CSF pathogen PCR negative COVID-negative Cathinone/Bath salts pending. Phencyclidine negative. Intubation sedation, propofol/Precedex/fentanyl Ulcer PPx, currently on Pepcid Hypertension Troponin negative No ST changes Home clonidine held while on above Ppx - SCDs, Pepcid Code - Full (did not discuss with patient or family) Admission and Anticipated Discharge Date Admission Date: December 04, 2021 Subjective Patient remained in our facility overnight as there was no transportation to take her back to [facility]. Patient was seen in the morning of the and was deemed stable for discharge. Patient had no new complaints or problems at this time Review of Systems Review of Systems: Mild distress and fatigue no headache, no visual changes no speech or swallowing issues no chest pain, pressure or palpitations no shortness of breath, cough or wheezes no abdominal pain, nausea or vomiting, diarrhea or constipation no dysuria, hematuria or frequency no focal joint pain or swelling no back pain, CVA tenderness or radicular pain no bruising, bleeding or rashes no focal signs of weakness or numbness or altered sensation no complaints of anxiety or depression.. Physical Exam Physical Exam: The patient appeared stable Vital signs as documented. Lungs are clear to auscultation and appear unlabored Cardiac exam, Rhythm is regular.. No murmurs, rubs or gallops. Abdominal exam reveals normal bowel sounds, soft non tender, no masses Extremities are nonedematous and both pedal pulses are normal. Neurologic exam is alert and oriented, no focal loss of strength or sensation Skin is without bruises or rashes Psychologically is without concerns for anxiety or depression. Results & Data Results & Data ([facility]) Vital Signs (Past 12 Hours) Vital Signs Temp Pulse Resp BP Pulse Ox 12/05/21 03:15 60 19 97 12/05/21 01:00 97.3 F L 63 18 123/88 97 12/05/21 00:00 97.3 F L 62 18 125/87 98 12/04/21 23:00 97.3 F L 62 18 119/82 97 12/04/21 22:00 97.3 F L 62 18 124/85 95 12/04/21 21:00 97.7 F 68 16 114/77 96 12/04/21 20:00 97.7 F 69 16 117/80 98 PG Care Time/CCT Total # of Minutes Spent Total Time Spent with Patient: Total time spent is greater than 50% in coordination of care (as documented) at patient's floor/unit and/or counseling patient: Coding Level of Care Code 77431 Subseq Hosp Care Lvl 1 Diagnoses Combative behavior R46.89
--- NOTE | 2021-12-05 07:55 | XRay Report ---
XR chest 1V portable CLINICAL HISTORY: Follow-up intubation. COMPARISON STUDY: 12/04/2021 TECHNIQUE: 1 view of the chest FINDINGS: Single frontal view of the chest demonstrates the cardiomediastinal silhouette to be within normal li mits. ET and NG tubes are in place. There is decreased expansion of lungs and the current study with crowding the bronchovascular markings at the lung bases now seen. The lungs are clear of alveolar opa cities. There is no evidence for pleural effusion. There is no evidence for vascular congestion. Ther e is no acute osseous pathology. IMPRESSION: 1. Decreased expansion of the lungs with otherwise no acute chest disease. ACT 112: Negative or not required by law. Electronically signed by: Noam Teran M.D. 12/05/2021 7:54 AM
--- NOTE | 2021-12-05 08:24 | Critical Care Progress Note ---
Date of Service December 05, 2021 Assessment & Plan (1) Admitted to intensive care unit: Plan: Reason Critically Ill: 31-year-old female presenting with agitated delirium from possible substance intoxication requiring sedation with emergent endotracheal intubation. NEURO - * Altered mental status: improved * Concerns for possible ingestion - cathinone pending * restart home medications CARDIAC/VASCULAR - * No reported history of cardiovascular disease. * Blood pressures have been appropriate to this point. * Monitor on telemetry. RESPIRATORY - * No evidence of aspiration given emesis GI/NUTRITION - * advance diet as tolerated RENAL/LYTES - * No significant electrolyte derangements * Stop IVF - * Grossman: discontinue today ENDO - * No h/o DM or Thyroid Dz * BSGs per unit protocol. ISS --> gtt per unit policy. HEME - * Stable H&H ID - * No concerns for infections sources at this time. LINES/IV ACCESS - * PIVs x2 DVT PROPHYLAXIS - * Heparin * SCDs (2) Delirium, acute: (3) Endotracheally intubated: (4) AMS (altered mental status): (5) Agitation: Admission and Anticipated Discharge Date Admission Date: December 04, 2021 Supervising Physician Co-Signing Physician Notes Patient was discussed in multidisciplinary rounds I have personally spent 35 minutes of critical care time in the direct management of this patient. This is a life/limb threatening event. This includes time spent evaluating patient, direct bedside care, chart review, placing orders, interpretation of diagnostic studies, discussion with consultants, patient, and/or family members regarding treatment decisions, as well as other required patient management activities. This time is exclusive of all separately billable procedures, and teaching time and separate from and in addition to any other critical care service time. Subjective No overnight events, liberated from ventilator this morning. Physical Exam Physical Exam: General: Alert. nontoxic. Skin: Warm, dry, Head: Atraumatic Ears, nose, mouth and throat: airway patent Cardiovascular: Normal peripheral perfusion Respiratory: no respiratory distress Gastrointestinal: Non distended Musculoskeletal: No deformity Results & Data Results & Data ([facility]) Vital Signs (Past 12 Hours) Vital Signs Temp Pulse Pulse Resp BP BP Pulse Ox 12/05/21 08:07 37.0 C 68 14 127/97 96 12/05/21 07:15 60 19 95 12/05/21 07:00 36.6 C 59 L 18 123/86 98 12/05/21 03:15 60 19 97 12/05/21 01:00 36.3 C L 63 18 123/88 97 12/05/21 00:00 36.3 C L 62 18 125/87 98 12/04/21 23:00 36.3 C L 62 18 119/82 97 12/04/21 22:00 36.3 C L 62 18 124/85 95 12/04/21 21:00 36.5 C 68 16 114/77 96 Critical Care Results & Data Vital Signs (Past 12 Hours) Vital Signs Temp Pulse Pulse Resp BP BP Pulse Ox 12/05/21 08:07 37.0 C 68 14 127/97 96 12/05/21 07:15 60 19 95 12/05/21 07:00 36.6 C 59 L 18 123/86 98 12/05/21 03:15 60 19 97 12/05/21 01:00 36.3 C L 63 18 123/88 97 12/05/21 00:00 36.3 C L 62 18 125/87 98 12/04/21 23:00 36.3 C L 62 18 119/82 97 12/04/21 22:00 36.3 C L 62 18 124/85 95 12/04/21 21:00 36.5 C 68 16 114/77 96 Lab & Micro Results (Past 24 Hours) RBC 3.54 M/uL (4.2-5.4) L 12/05/21 WBC 10.42 K/uL (4.8-10.8) 12/05/21 Hgb 10.7 g/dL (12.0-16.0) L 12/05/21 Hct 31.6 % (37-47) L 12/05/21 MCV 89.3 fL (80-100) 12/05/21 MCH 30.2 pg (25-34) 12/05/21 MCHC 33.9 g/dL (32-36) 12/05/21 RDW Standard Deviation 44.2 fL (36.4-46.3) 12/05/21 RDW Coefficient of Variation 13.4 % (11.5-14.5) 12/05/21 Plt Count 319 K/uL (130-400) 12/05/21 MPV 10.2 fL (7.4-10.4) 12/05/21 Neutrophils (%) (Auto) 60.5 % 12/05/21 Lymphocytes (%) (Auto) 28.4 % 12/05/21 Monocytes # (Auto) 0.86 K/uL (0.11-0.59) H 12/05/21 Eosinophils # (Auto) 0.19 K/uL (0-0.5) 12/05/21 Immature Granulocyte % (Auto) 0.2 % 12/05/21 Neutrophils # (Auto) 6.31 K/uL (1.4-6.5) 12/05/21 Lymphocytes # (Auto) 2.96 K/uL (1.2-3.4) 12/05/21 Monocytes # (Auto) 0.86 K/uL (0.11-0.59) H 12/05/21 Eosinophils # (Auto) 0.19 K/uL (0-0.5) 12/05/21 Basophils # (Auto) 0.08 K/uL (0-0.2) 12/05/21 Immature Granulocyte # (Auto) 0.02 K/uL (0.00-0.02) 12/05/21 Na 143 mmol/L (136-145) 12/05/21 K 3.0 mmol/L (3.5-5.1) L 12/05/21 Cl 113 mmol/L (98-107) H 12/05/21 CO2 21 mmol/L (21-32) 12/05/21 Anion Gap 9 (3-11) 12/05/21 BUN 15 mg/dl (6-23) 12/05/21 Creatinine 0.74 mg/dl (0.6-1.2) 12/05/21 Estimated GFR ( Amer) 125.1 ml/min 12/05/21 Estimated GFR (Non-Af Amer) 108.0 ml/min 12/05/21 BUN/Creatinine Ratio 20.3 (10-20) H 12/05/21 Glu 87 mg/dl (70-99(Fasting)) 12/05/21 Ca 8.0 mg/dl (8.5-10.1) L 12/05/21 Phosphorus Level 2.2 mg/dl (2.5-4.9) L 12/05/21 Total Bilirubin 0.6 mg/dl (0.2-1.0) 12/05/21 Direct Bilirubin 0.1 mg/dl (0-0.2) 12/05/21 AST 26 U/L (13-39) 12/05/21 ALT 19 U/L (7-52) 12/05/21 Alkaline Phosphatase 51 U/L (34-104) 12/05/21 TP 5.4 gm/dl (6.0-8.3) L 12/05/21 Albumin 3.1 gm/dl (3.4-5.0) L 12/05/21 Mg 2.1 mg/dl (1.7-2.4) 12/05/21 04:44 12/05/21 Calcium Level 8.0 mg/dl (8.5-10.1) L 12/05/21 04:44 12/05/21 Rico Test Pass 12/05/21 03:50 12/05/21 Microbiology 12/04/21 08:50 Gram Stain - Final Cerebral Spinal Fluid Diagnostic Findings (Past 24 Hours) KUB X-Ray 12/04/21 21:37 KUB pre MRI CLINICAL HISTORY: pre MRI. COMPARISON STUDY: No previous studies for comparison. TECHNIQUE: Multiple supine views of the abdomen FINDINGS: The bowel gas pattern is within normal limits without evidence for dilatation or obstruction. NG tube is in place. Rectal catheter is also in place. No metallic foreign bodies are identified. There is evidence for fecal stasis. There is no evidence for organomegaly or gross intra-abdominal mass. No abnormal calcifications are seen along the course of the urinary tracts bilaterally. No acute osseous pathology. IMPRESSION: 1. No acute intra-abdominal abnormality. 2. Mild to moderate fecal stasis. 3. No radiopaque foreign bodies. ACT 112: Negative or not required by law. Electronically signed by: Noam Teran M.D. 12/05/2021 7:04 AM Orbit X-Ray 12/04/21 21:37 BONY ORBITS 2 VIEWS CLINICAL HISTORY: MRI clearance. FINDINGS: AP and lateral views of the bony orbits are obtained. Correlation is made with CT of the brain dated 12/04/2021. A metallic piercing is noted in the right facial soft tissues. This is located approximately 1.5 cm from the right orbit as seen on the recent CT scan. No additional radiodense/metallic foreign body is identified in the region of the bony orbits. The bony orbits are intact as imaged. The visualized paranasal sinuses and the mastoid air cells appear clear. The imaged calvarium appears intact. An endotracheal tube is noted. IMPRESSION: 1. There is a metallic piercing in the right facial soft tissues approximately 1.5 cm from the right orbit. This is of indeterminant safety for MRI. 2. No additional radiodense/metallic foreign body is seen in the region of the bony orbits. ACT 112: Negative or not required by law. Electronically signed by: Bryan Kern M.D. 12/05/2021 7:09 AM Chest X-Ray 12/05/21 07:00 XR chest 1V portable CLINICAL HISTORY: Follow-up intubation. COMPARISON STUDY: 12/04/2021 TECHNIQUE: 1 view of the chest FINDINGS: Single frontal view of the chest demonstrates the cardiomediastinal silhouette to be within normal limits. ET and NG tubes are in place. There is decreased expansion of lungs and the current study with crowding the bronchovascular markings at the lung bases now seen. The lungs are clear of alveolar opacities. There is no evidence for pleural effusion. There is no evidence for vascular congestion. There is no acute osseous pathology. IMPRESSION: 1. Decreased expansion of the lungs with otherwise no acute chest disease. ACT 112: Negative or not required by law. Electronically signed by: Noam Teran M.D. 12/05/2021 7:54 AM I & O Totals 24 Hours 12/04/21 12/05/21 12/06/21 06:59 06:59 06:59 Intake Total 72.194 / 72.194 2632.555 / 2632.555 107.795 / 107.795 Output Total 193 / 1929 Balance 72.194 / 72.194 702.555 / 702.555 107.795 / 107.795 Cumulative 12/03/21 23:12 thru 12/05/21 07:32 Intake Total 2812.544 Output Total 1929 Balance 882.544 RT Ventilator Mngmt (Last Documented) Ventilator Ordered Settings Ventilator Support Mode Assist Control 12/05/21 07:15 Respiratory Rate 14 12/05/21 08:07 Ventilator Tidal Volume 400 12/05/21 07:15 Setting Minute Ventilation 7.2 12/05/21 07:15 Positive End Expiratory 5 12/05/21 07:15 Pressure Fraction of Inspired Oxygen 30 12/05/21 07:15 Ventilator - PT Measurements Respiratory Rate 14 Exhaled Tidal Volume 400 Minute Ventilation 7.2 Peak Inspiratory Airway 18 Pressure Plateau Pressure 14.8 Respiratory Cycle Inspiratory: 1:2.7 Expiratory Ratio Inspiratory Phase Time 0.90 End-Tidal CO2 25 Static Lung Compliance 40.82 Dynamic Lung Compliance 30.77 Normal Static Lung Compliance 47.00 Patient Measurements Comment Added EtCO2 Coding Level of Care Code Critical Care 1st 30-74 mins Diagnoses Admitted to intensive care unit Z78.9 Delirium, acute R41.0 Endotracheally intubated Z97.8 AMS (altered mental status) R41.82 Agitation R45.1
[2021-12-05] MEDS: SERTRALINE HCL 50 MG TABLET PO SCH (10:27)
[2021-12-05] MEDS: buPROPion XL 150 MG TABCR PO SCH (10:27)
[2021-12-05] MEDS: guanFACINE HCL 1 MG TAB PO SCH ×2 (10:27→20:35)
[2021-12-05] MEDS: FAMOTIDINE 20 MG in SYRINGE 3 ML IV SCH (10:30)
[2021-12-05] MEDS: HEPARIN SOD 5,000 UNIT/0.5 ML VIAL SQ SCH (10:30)
[2021-12-05] MEDS: GABAPENTIN 400 MG CAP PO SCH ×2 (13:03→20:36)
[2021-12-05] MEDS: TOPIRAMATE 25 MG TAB PO SCH ×2 (13:04→20:37)
[2021-12-05] MEDS ORDERED: IBUPROFEN 800 MG TAB PO PRN (13:57)
[2021-12-05] MEDS: hydrOXYzine HCl 25 MG TAB PO PRN (14:06)
[2021-12-05] MEDS: ACETAMINOPHEN 500 MG TAB PO PRN (14:27)
--- NOTE | 2021-12-05 16:45 | Discharge Summary ---
Date of Service December 05, 2021 Admission HPI Per Admitting Provider Dony Burroughs is a 31yo female presenting from [facility] facility with confusion, combativeness. History is limited as patient is intubated and sedated, no family at bedside and minimal records. Patient is at [facility] for reported addiction to opioids as well as Adderall. She was found to be confused and combative this evening and was sent to [facility]. Patient denies taking illicit substances although did disclose to nursing that her roommate did have heroin. Per EMS patient administered: Revia 5mg, Valium 10mg Versed 2.5mg. She was combative and altered upon arrival to the ER. Per ER physician - she was moving all extremities seemingly involuntarily - flailing and thrashing in the bed the throwing herself around. Per ER she was given: Ativan 2mg IM Versed 2mg + 2mg IM Ketamine 35mg IV + 35mg IV + 60mg IV + 120mg IV Fentanyl 50mcg IV Benadryl 50mg IV Patient continued to be combative and altered. Then intubated and sedated Etomidate 20mg IV Succinylcholine 120mg IV Propofol bolus 20mg and gtt Vecuronium 10mg IV Patient initially was intubated, sedated patient was extubated in the morning of 12/05/2021. Patient became more arousable slightly before 10:00 did well t hroughout the afternoon eat lunch was able to walk about a room was cleared by bedside swallowing evaluation. Patient requests to go to [facility] and will continue her detox stay there Principal Diagnosis encephalopathy, suspected toxic respiratory failure requiring mechanical ventialtion Discharge Exam The patient appeared stable patient was extubated in the instructional design manager hours she recovered throughout the day and towards end of the day she was awake alert appropriate able to eat and drink and walk about her room Vital signs as documented. Lungs are clear to auscultation and appear unlabored Cardiac exam, Rhythm is regular.. No murmurs, rubs or gallops. Abdominal exam reveals normal bowel sounds, soft non tender, no masses Extremities are nonedematous and both pedal pulses are normal. Neurologic exam is alert and oriented, at times experiencing some heightened emotion or anxiety no focal neurological deficits or seizure activity Skin is without bruises or rashes Psychologically is with concerns for anxiety Discharge Data Allergies Allergy/AdvReac Type Severity Reaction Status Date / Time Unable to Assess Allergy Verified 12/03/21 23:46 Consultations 12/04/21 05:38 ED Decision to Admit Stat 12/04/21 07:21 Consult Biochemical Development Engineer Routine Ordered Studies 12/04/21 02:59 CT head/brain wo con Urgent Hospital Course (1) Combative behavior: Dony Burroughs is a 31yo female presenting from [facility] with confusion, combative behavior. Patient administered multiple agents by EMS and ER team in effort to control agitation. Ultimately intubated and sedated with Propofol and Versed.On admit normal WBC and blood counts. Normal chemistry, electroytes, renal function. No abnormality in liver studies. She has an elevation of CK to 308 which can most likely be explained by her extreme agitation. UTox is positive for benzodiazepines (administered prior to arrival), MDMA (patient is on Wellbutrin) and Marijuana/THC. Records are limited, home medications appears to be Wellbutrin 300mg daily, Clonidine, Gabapentin 400mg TID, Zoloft 125mg daily, Vistaril 50mg TID, Seroquel 100mg HS and Prazosin 1mg HS. Appears to have recently completed a course of PO Clindamycin as well. Acute encephalopathy, severe agitation, combative -Chemical restrain in ER, eventual intubation CT head without acute findings - Lumbar puncture performed by computerized mill mill recorder CSF glucose 80, total protein 39 normal, WBC 10, RBC 0 CSF pathogen PCR negative COVID-negative Cathinone/Bath salts pending. Phencyclidine negative. Intubation sedation, propofol/Precedex/fentanyl patient extubated the morning of 12/05/2021 did well for today passed bedside swallowing screen was eventually discharged Hypertension Troponin negative No ST changes Code - Full (did not discuss with patient or family) Total Time Total Time Spent Total Time Spent (In Minutes): It required greater than 30 minutes to prepare this patient for discharge, including 2 visits and call to change dose of his rehab Discharge Plan Discharge Items Patient Disposition: Drug & Alcohol Rehab Reason For Visit: ALTERED, COMBATIVE Discharge Diagnosis: encephalopathy suspect toxic respiratory failure requiring ventilation Activity: Per Instructions section Activity Comment: per limitations from the facility Non-emergency contact: Primary Care Provider Call non-emergency contact if: your symptoms worsen Follow-up/Referrals: [facility] [Primary Care Provider] - Diet: Regular Addtl Attending Provider Instructions: please only take medications as prescribed Pending Studies at Discharge: Yes Studies:: send out toxicology testing Stand-Alone Forms: My [facility] Skilled Items Patient informed of condition?: Yes DNR: No Discharge Level of Care: Other Communicable Disease: No Discharge Prognosis: Stable Lines: None Urinary Catheter: No Medications and DC Order Prescriptions: Continued multivitamin Tablet 1 tab PO DAILY RF: 0 prazosin 1 mg Capsule 1 mg PO HS RF: 0 naltrexone [Revia] 50 mg Tablet 25 mg PO DAILY RF: 0 hydroxyzine pamoate [Vistaril] 50 mg Capsule 50 mg PO TID PRN (Reason: Anxiety) RF: 0 topiramate [Topamax] 25 mg Tablet 25 mg PO TID RF: 0 quetiapine [Seroquel] 100 mg Tablet 100 mg PO HS RF: 0 guanfacine [Tenex] 1 mg Tablet 1 mg PO BID RF: 0 sertraline [Zoloft] 50 mg Tablet 125 mg PO DAILY RF: 0 bupropion HCl [Wellbutrin XL] 150 mg Tablet Extended Release 24 Hr 150 mg PO DAILY RF: 0 gabapentin 400 mg Tablet 400 mg PO TID RF: 0 Discharge Orders: Discharge Order (Routine); Ordered 12/05/21 Ordered By: Pieter Costa Admission Data Admit Date/Time: 12/04/21 06:25 Attending Provider: Pieter Costa Admit Provider: Molly Odell Primary Care Provider: [facility] Other Providers: Molly Odell ; Tim Cash Coding Level of Care Code D/C DAY MANAGEMENT >30 MINS Diagnoses Combative behavior R46.89
[2021-12-05] MEDS ORDERED: CHLORHEXIDINE GLUCONATE 0.12% 480 ML MT PRN (19:57)
[2021-12-05] MEDS: FAMOTIDINE 20 MG TAB PO SCH (20:35)
[2021-12-05] MEDS: SENNA 8.6 MG TAB PO SCH (20:37)
[2021-12-05] MEDS ORDERED: MELATONIN 3 MG TAB PO PRN (20:55)
[2021-12-05] MEDS ORDERED: QUEtiapine FUMARATE 100 MG TABLET PO SCH (21:00)
[2021-12-05] MEDS ORDERED: PRAZOSIN HCL 1 MG CAP PO SCH (21:00)
[2021-12-05] MEDS ORDERED: PREGABALIN 25 MG CAP PO ONE (21:00)
[2021-12-05] MEDS ORDERED: VECURONIUM BROMIDE 10 MG VIAL IV ONE (23:00)
[2021-12-06 05:41] LABS: Basophils # (auto) 0.05 K/uL (0-0.2); Basophils % (auto) 0.7 %; Eosinophils # (auto) 0.34 K/uL (0-0.5); Eosinophils % (auto) 4.7 %; Hematocrit (blood only) 29.3 % (37-47); Hemoglobin 9.9 g/dL (12.0-16.0); Immature Granulocytes # (auto) 0.01 K/uL (0.00-0.02); Immature Granulocytes % (auto) 0.1 %; Lymphocytes # (auto) 2.87 K/uL (1.2-3.4); Lymphocytes % (auto) 39.5 %; Mean Corpuscular Hemoglobin 30.3 pg (25-34); Mean Corpuscular Hgb Conc 33.8 g/dL (32-36); Mean Corpuscular Volume 89.6 fL (80-100); Mean Platelet Volume 11.2 fL (7.4-10.4); Monocytes # (auto) 0.68 K/uL (0.11-0.59); Monocytes % (auto) 9.4 %; Neutrophils # (auto) 3.32 K/uL (1.4-6.5); Neutrophils % (auto) 45.6 %; Platelet Count 264 K/uL (130-400); RDW Coefficient of Variation 13.7 % (11.5-14.5); RDW Standard Deviation 45.4 fL (36.4-46.3); Red Blood Count 3.27 M/uL (4.2-5.4); White Blood Count 7.27 K/uL (4.8-10.8)
[2021-12-06 06:22] LABS: Bilirubin Direct 0.2 mg/dl (0-0.2); Bilirubin,Total 0.7 mg/dl (0.2-1.0); Calcium 8.3 mg/dl (8.5-10.1); Creatinine Clr Calc Pharmacy 109.6 ml/min; Est GFR (African American) 135.1 ml/min; Est GFR (Non-African American) 116.6 ml/min; Potassium 3.6 mmol/L (3.5-5.1); Total Protein 5.2 gm/dl (6.0-8.3)
[2021-12-06] MEDS: propofoL 1,000 MG/100 ML VIAL IV SCH (06:38)
[2021-12-06] MEDS: ACETAMINOPHEN 500 MG TAB PO PRN (08:00)
[2021-12-06] MEDS: buPROPion XL 150 MG TABCR PO SCH (08:03)
[2021-12-06] MEDS: FAMOTIDINE 20 MG TAB PO SCH (08:03)
[2021-12-06] MEDS: GABAPENTIN 400 MG CAP PO SCH (08:04)
[2021-12-06] MEDS: guanFACINE HCL 1 MG TAB PO SCH (08:05)
[2021-12-06] MEDS: SERTRALINE HCL 50 MG TABLET PO SCH (08:06)
[2021-12-06] MEDS: TOPIRAMATE 25 MG TAB PO SCH (08:07)
[2021-12-06] MEDS: hydrOXYzine HCl 25 MG TAB PO PRN (08:51)
[2021-12-06] MEDS ORDERED: MULTIVITAMIN TAB PO SCH (09:00)
[2021-12-09 12:21] LABS: 7-Aminoclonaz, Confirm NEGATIVE ng/mL (<25); Hydro-Alp Ur, GC/MS NEGATIVE ng/mL (<25); Hydroxyethylflurazepam, Conf NEGATIVE ng/mL (<50); Hydroxymidazolam Ur, GC/MS >2000 ng/mL (<50); Hydroxytriazolam NEGATIVE ng/mL (<50); Lorazepam, Ur GC/MS 58 ng/mL (<50); MDA negative; MDEA negative; MDMA (Ecstasy) Urine, Confirm negative; Marijuana Quant, GCMS Urine 36 ng/mL (<5); Nordiazepam, Confirm 64 ng/mL (<50); Oxazepam Ur, GC/MS NEGATIVE ng/mL (<50); Temazepam, Confirm 75 ng/mL (<50)
== END 2021-12-06 12:00 | disposition alcohol treatment (31) | DRG 91 ==
LOC: ED 23:16 → SUATTDRO 12-04 06:25 → 1E 12-04 06:25